=== PATIENT | male | born 1950 | race African-American/Black ===

== ENCOUNTER 2020-11-22 17:14 | Inpatient (IN) | payer MEDICARE, MEDICAID ==
[~2020-11-22] VITALS: Ht 172.7 cm; Wt 79.4 kg
[2020-11-22] MEDS ORDERED: levETIRAcetam 1,000mg/NS100ml 100 ML IVPB ONE (17:30)
--- NOTE | 2020-11-22 17:35 | Emergency Room Report ---
History of Present Illness General Chief Complaint: Seizure Source: Patient Present Illness HPI Disclaimer: Please note that this report is being documented using DRAGON technology. This can lead to erroneous entry secondary to incorrect interpretation by the dictating instrument. HPI: 62-year-old male presents for evaluation of seizure-like activity. According to EMS the patient's roommate witnessed 2 brief episodes of generalized tonic-clonic shaking that resolved spontaneously. Each lasted less than 30 seconds. No head injury was reported. The patient arrives awake and alert and denies having a seizure history. He does not know how he came to the emergency department has retrograde amnesia. Denies any pain or discomfort. Denies headache, visual changes, numbness, tingling, pain in the extremities, chest, shortness of breath, nausea, vomiting. States he does not take any medications for seizures. Does have a history of high blood pressure.. PMH: Hypertension PSH: Nominal surgery unspecified Allergies: Denied Social Hx: Reviewed Allergies: Coded Allergies: No Known Allergies (Unverified , 11/22/20) COVID-19 Screening Contact w/high risk pt: No Experienced COVID-19 symptoms?: No COVID-19 Testing performed PERCUSSION INSTRUMENT REPAIRER: No Nursing Documentation-PMH Hx Seizures: Yes Review of Systems All Other Systems: negative except mentioned in HPI Physical Exam Vital Signs Date Time Temp Pulse Resp B/P (MAP) Pulse Ox O2 Delivery O2 Flow Rate FiO2 11/22/20 16:55 98.2 97 18 138/82 (100) 96 Nasal Cannula 3.0 General: Awake and alert, no acute distress HEENT: NC/AT. EOMI. PERRLA. Visual hayden are full. No nystagmus. Facial expressions are symmetrical. No facial droop. Cardiovascular: RRR. S1 and S2 normal. No murmur appreciated Resp: Normal work of breathing. No cough, wheezing or crackles appreciated Abdomen: Abdomen is soft, nondistended. Nontender Skin: Intact. No abrasions, laceration or rash over the exposed skin MSK: Normal tone and bulk. Moving all extremities. No obvious deformity. There is no drift in the upper or lower extremities bilaterally. Neuro: Awake and alert. Mentating appropriately. Facial expression symmetrical. No dysarthria, no ataxia on [id number] or [id number] testing. Sensation to light touch is intact over the upper and lower extremities. The patient has intact speech with good repetition, comprehension. Fund of knowledge is full. No aphasia, no neglect. NIH: 0 Medical Decision Making Diagnostic Impression: Primary Impression: Abnormal EKG Additional Impressions: Cocaine abuse Observed seizure-like activity ER Course 70-year-old male presents for evaluation after generalized tonic-clonic shaking. Concern for seizure. Unclear whether or not the patient has a seizure history. He is awake and alert and behaving appropriately. Patient found mildly hypoglycemic and given orange juice. His EKG shows precordial Q waves and diffuse inverted T in the anterolateral leads. No obvious ST segment elevation though abnormal EKG. CT head shows chronic changes. No acute bleed or mass identified. Labs are positive for cocaine on tox screen. Initial troponin within normal limits. Will admit for cardiac evaluation given his abnormal EKG and seizure-like activity today. Admitted to panel physician, Dr. Harding. Laboratory Tests Test 11/22/20 17:30 11/22/20 19:00 11/22/20 20:00 White Blood Count 4.8 K/UL (4.8-10.8) Red Blood Count 5.71 M/UL (4.70-6.10) Hemoglobin 15.5 G/DL (14.2-18.0) Hematocrit 49.1 % (42.0-52.0) Mean Corpuscular Volume 86 FL (80-99) Mean Corpuscular Hemoglobin 27.1 PG (27.0-31.0) Mean Corpuscular Hemoglobin Concent 31.5 G/DL (32.0-36.0) L Red Cell Distribution Width 14.6 % (11.6-14.8) Platelet Count 162 K/UL (150-450) Mean Platelet Volume 10.3 FL (6.5-10.1) H Neutrophils (%) (Auto) 62.6 % (45.0-75.0) Lymphocytes (%) (Auto) 21.4 % (20.0-45.0) Monocytes (%) (Auto) 6.2 % (1.0-10.0) Eosinophils (%) (Auto) 8.4 % (0.0-3.0) H Basophils (%) (Auto) 1.3 % (0.0-2.0) Sodium Level 141 MMOL/L (136-145) Potassium Level 4.6 MMOL/L (3.5-5.1) Chloride Level 108 MMOL/L (98-107) H Carbon Dioxide Level 24 MMOL/L (21-32) Anion Gap 9 mmol/L (5-15) Blood Urea Nitrogen 15 mg/dL (7-18) Creatinine 1.0 MG/DL (0.55-1.30) Estimated Glomerular Filtration Rate > 60 mL/min (>60) Glucose Level 86 MG/DL (74-106) Calcium Level 8.8 MG/DL (8.5-10.1) Total Bilirubin 0.3 MG/DL (0.2-1.0) Aspartate Amino Transferase (AST) 20 U/L (15-37) Alanine Aminotransferase (ALT) 26 U/L (12-78) Alkaline Phosphatase 64 U/L (46-116) Total Protein 7.5 G/DL (6.4-8.2) Albumin 3.3 G/DL (3.4-5.0) L Globulin 4.2 g/dL Albumin/Globulin Ratio 0.8 (1.0-2.7) L Salicylates Level 1.0 ug/mL (2.8-20) L Acetaminophen Level < 2 MCG/ML (10-30) L Serum Alcohol < 3 mg/dL Urine Color Pale yellow Urine Appearance Slightly cloudy Urine pH 5 (4.5-8.0) Urine Specific [place] 1.015 (1.005-1.035) Urine Protein 2+ (NEGATIVE) H Urine Glucose (UA) Negative (NEGATIVE) Urine Ketones Negative (NEGATIVE) Urine Blood Negative (NEGATIVE) Urine Nitrite Negative (NEGATIVE) Urine Bilirubin Negative (NEGATIVE) Urine Urobilinogen Normal MG/DL (0.0-1.0) Urine Leukocyte Esterase 1+ (NEGATIVE) H Urine RBC 0 /HPF (0 - 0) Urine WBC 5-10 /HPF (0 - 0) H Urine Squamous Epithelial Cells Moderate /LPF (NONE/OCC) H Urine Amorphous Sediment Moderate /LPF (NONE) H Urine Bacteria Few /HPF (NONE) Urine Opiates Screen Negative (NEGATIVE) Urine Barbiturates Screen Negative (NEGATIVE) Phencyclidine (PCP) Screen Negative (NEGATIVE) Urine Amphetamines Screen Negative (NEGATIVE) Urine Benzodiazepines Screen Negative (NEGATIVE) Urine Cocaine Screen Positive (NEGATIVE) H Urine Marijuana (THC) Screen Negative (NEGATIVE) Troponin I 0.033 ng/mL (0.000-0.056) Pro-B-Type Natriuretic Peptide 825 pg/mL (0-125) H EKG Diagnostic Results Troponin ordered: Yes When was troponin ordered?: Nov 22, 2020 EKG Time: 17:16 Rate: normal Rhythm: NSR Other Impression Sinus rhythm, left axis, normal intervals, T wave inversions and precordial Q waves. No ST segment changes. Rhythm Strip Diag. Results Rhythm Strip Time: 17:16 EP Interpretation: yes Rate: 70s Rhythm: NSR, no PVC's, no ectopy CT/MRI/US Diagnostic Results CT/MRI/US Diagnostic Results : Impression CT Head IMPRESSION: 1. No acute intracranial abnormality. If clinical concern remains, consider MRI for further evaluation. 2. 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 3. Chronic microvascular ischemic and age-related parenchymal changes. Dictated By: Carlos Lam M.D. Electronically Signed By:Carlos Lam M.D. Signed Date/Time11/22/20 1801 CC: Noé Reyes MD Last Vital Signs Date Time Temp Pulse Resp B/P (MAP) Pulse Ox O2 Delivery O2 Flow Rate FiO2 11/22/20 16:55 98.2 97 18 138/82 (100) 96 Nasal Cannula 3.0 Disposition: ADMITTED INPATIENT Condition: Stable Noé Reyes MD Nov 22, 2020 17:35
--- NOTE | 2020-11-22 17:40 | NUR ---
ED Nurse Note:pt arrived via ems alert. attempted to ask pt questions several times. pt kept his eyes closed and would not answer. he would open his eyes and look around and close them again. AMADO at the bedside asking questions and pt answering without difficulty. as soon as AMADO walked away pt continued to not speak. ems stated his roommate thought he was having a seizure and was afraid he would aspirate so he called 911. pt [address] he didn't have a seizure. he stated that he hasn't been taking any seizure meds.
[2020-11-22 17:56] LABS: BASOPHILS % (AUTO) 1.3 % (0.0-2.0); EOSINOPHILS % (AUTO) 8.4 % (0.0-3.0); HEMATOCRIT 49.1 % (42.0-52.0); HEMOGLOBIN 15.5 G/DL (14.2-18.0); LYMPHOCYTES % (AUTO) 21.4 % (20.0-45.0); MEAN CORPUSCULAR VOLUME 86 FL (80-99); MONOCYTES % (AUTO) 6.2 % (1.0-10.0); NEUTROPHILS % (AUTO) 62.6 % (45.0-75.0); PLATELET COUNT 162 K/UL (150-450); RED BLOOD COUNT 5.71 M/UL (4.70-6.10); RED CELL DISTRIBUTION WIDTH 14.6 % (11.6-14.8); WHITE BLOOD COUNT 4.8 K/UL (4.8-10.8)
--- NOTE | 2020-11-22 18:02 | Diagnostic Imaging Report ---
EXAM: CT Head Without Intravenous Contrast CLINICAL HISTORY: SZ TECHNIQUE: Axial computed tomography images of the head/brain without intravenous contrast. CTDI is 13.20 mGy and DLP is 683.60 mGy-cm. One or more of the following dose reduction techniques were used: automated exposure control, adjustment of the mA and/or kV according to patient size, use of iterative reconstruction technique. COMPARISON: No relevant prior studies available. FINDINGS: Brain: Encephalomalacia of the right frontal lobe. Age-related parenchymal volume loss. Periventricular and deep white matter hypodensities. No hemorrhage. Ventricles: Unremarkable. No ventriculomegaly. Bones/joints: Unremarkable. No acute fracture. Soft tissues: Unremarkable. Vasculature: Atherosclerotic vascular disease. Sinuses: Unremarkable as visualized. No acute sinusitis. Mastoid air cells: Unremarkable as visualized. No mastoid effusion. IMPRESSION: 1. No acute intracranial abnormality. If clinical concern remains, consider MRI for further evaluation. 2. 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 3. Chronic microvascular ischemic and age-related parenchymal changes.
[2020-11-22 18:04] LABS: ANION GAP 9 mmol/L (5-15); BLOOD UREA NITROGEN 15 mg/dL (7-18); CALCIUM 8.8 MG/DL (8.5-10.1); CARBON DIOXIDE 24 MMOL/L (21-32); CHLORIDE 108 MMOL/L (98-107); POTASSIUM 4.6 MMOL/L (3.5-5.1); SODIUM 141 MMOL/L (136-145)
--- NOTE | 2020-11-22 18:06 | NUR ---
ED Nurse Note:bg 74, reported to ERMD orders to give some juice to pt. pt took the juice and drank it.
[2020-11-22 18:08] VITALS: BP 119/84
[2020-11-22 18:10] LABS: ALANINE AMINOTRANSFERASE 26 U/L (12-78); ALBUMIN 3.3 G/DL (3.4-5.0); ALBUMIN/GLOBULIN RATIO 0.8 (1.0-2.7); ALKALINE PHOSPHATASE 64 U/L (46-116); ASPARTATE AMINO TRANSFERASE 20 U/L (15-37); BILIRUBIN,TOTAL 0.3 MG/DL (0.2-1.0)
--- NOTE | 2020-11-22 18:47 | NUR ---
ED Nurse Note:pt resting with eyes closed in no noted distress. will continue to monitor. pt continues to not answer this pt's questions
--- NOTE | 2020-11-22 19:05 | NUR ---
ED Nurse Note: Received pt in bed resting with eyes closed, vitals stable.
--- NOTE | 2020-11-22 19:30 | NUR ---
ED Nurse Note: Patient is awake, alert, oriented to person, place, disoriented to time and situation. Vitals stable, no complaints, asymptomatic. Voids and had a BM. Patient is forgetful, states he takes medications at home, does not recall the names. belonging list completed and signed by patient.
[2020-11-22 19:46] LABS: BILIRUBIN, URINE NEGATIVE (NEGATIVE); COLOR,URINE PALE YELLOW; GLUCOSE, URINE (UA) NEGATIVE (NEGATIVE); KETONES,URINE NEGATIVE (NEGATIVE); LEUKOCYTE ESTERASE ,URINE 1+ (NEGATIVE); NITRITE,URINE NEGATIVE (NEGATIVE); PH,URINE 5 (4.5-8.0); PROTEIN,URINE 2+ (NEGATIVE); UROBILINOGEN,URINE NORMAL MG/DL (0.0-1.0)
[2020-11-22 19:48] LABS: APPEARANCE,URINE SLIGHTLY CLOUDY
--- NOTE | 2020-11-22 20:00 | NUR ---
ED Nurse Note: Lab draw completed.well tolerated.
[2020-11-22] MEDS ORDERED: KEPPRA500 M4 ORAL (20:11)
[2020-11-22 20:15] VITALS: BP 123/75
--- NOTE | 2020-11-22 22:10 | NUR ---
NURSE NOTES: Report given by HERMAN Spears. Awaiting for patient's transfer.
--- NOTE | 2020-11-22 22:15 | NUR ---
TRANSFER TO FLOOR: Patient transferred to Tele room 209-2 as ordered,per corinne .Report given to HERMAN Rivera. Belongings given to patient. pt transferred with one staff and nurse, kaila.
--- NOTE | 2020-11-22 22:40 | NUR ---
NURSE NOTES: Received patient from E.R via [facility]. Patient is awake, alert and oriented x 3 in stable condition. Oriented to room and telemetry unit. Belongings list checked and verified. pvc monitor is in place, shows sinus bradycardia with HR of 58. IV site is on right forearm g-22 saline locked that is patent and intact. Safety measures are in place, bed in lowest and locked position, side rails up x 2, call light button and bedside table within reach, instructed to call for any assistance needed. Will call MD for admission orders.
--- NOTE | 2020-11-22 22:50 | NUR ---
NURSE NOTES: Called Dr. Harding and left a message to get admission orders. Awaiting for call back.
--- NOTE | 2020-11-22 23:39 | NUR ---
NURSE NOTES: Patient has a history of seizure, padded side rails and suction was set-up. Will closely monitor for episode of seizure.
[2020-11-23] VITALS: BP 100/73
--- NOTE | 2020-11-23 02:03 | NUR ---
NURSE NOTES: Called Dr. Harding again to get admission orders, awaiting for call back. At this time, patient is asleep, sinus bradycardia on the monitor HR of 58-59, with ST depression.
[2020-11-23] MEDS ORDERED: Morphine Sulfate 2mg/ml Inj(IV/IM USE ONLY) IVP PRN (03:00)
[2020-11-23] MEDS ORDERED: D5 1/2NS 1,000 ML IV SCH (03:00)
[2020-11-23 04:00] VITALS: BP 96/51
--- NOTE | 2020-11-23 07:41 | NUR ---
NURSE HAND-OFF REPORT: Important Events on Shift: Patient has been resting the whole shift with no complaints made. Patient Status: Patient is awake on bed in stable condition, plan of care endorsed Diet: regular diet Pending Orders: troponin @ 1400 and 2200 Pending Results/Labs:am lab result Pending MD notification:none Latest Vital Signs: Temperature 98.6 , Pulse 55 , B/P 96 /51 , Respiratory Rate 18 , O2 SAT 98 , Room Air, O2 Flow Rate 3.0 . Vital Sign Comment: stable EKG Rhythm: SR with 1ST degree AVB Rhythm change?: Shannon DOMINGUEZ Notified?: Shannon -Dr. Hermilo DOMINGUEZ Response: Message left await call Latest Hernandez Fall Score: 35 Fall Risk: Medium Risk Safety Measures: Call light Within Reach, Bed Alarm , Side Rails Side Rails x2, Bed position . Fall Precautions: Patient Fall Education Report given to HERMAN Melo.
--- NOTE | 2020-11-23 07:50 | NUR ---
NURSE NOTES: Received patient report from HERMAN Yun. Patient is AO x4 awake and able to make needs known. Patient shows no signs of distress or pain at the time. Patient is on room air and shows no signs of respiratory distress. IV is intact and running D5 1/2 NS at 60 cc/hr. There are no signs of erythema, infiltration, or bleeding. Bed is in the lowest position, call light is within reach, side rails up x3. Will continue to monitor.
[2020-11-23 08:00] VITALS: BP 83/52
--- NOTE | 2020-11-23 08:28 | NUR ---
NURSE NOTES: Patients current blood pressure is 83/52. I spoke to Dr. Akhtar and he ordered NS 500 bolus and if BP is still below 90 then start Levophed. Will continue to monitor.
[2020-11-23 08:42] LABS: EOSINOPHILS % (AUTO) 9.4 % (0.0-3.0); HEMATOCRIT 47.4 % (42.0-52.0); HEMOGLOBIN 14.5 G/DL (14.2-18.0); MEAN CORPUSCULAR VOLUME 86 FL (80-99); MONOCYTES % (AUTO) 5.8 % (1.0-10.0); NEUTROPHILS % (AUTO) 48.8 % (45.0-75.0); PLATELET COUNT 173 K/UL (150-450); RED BLOOD COUNT 5.54 M/UL (4.70-6.10); RED CELL DISTRIBUTION WIDTH 14.6 % (11.6-14.8); WHITE BLOOD COUNT 5.8 K/UL (4.8-10.8)
--- NOTE | 2020-11-23 08:49 | NUR ---
NURSE NOTES: After 1 500 NS bolus patients BP is 90/ 56. Will continue to monitor.
[2020-11-23 09:08] LABS: ANION GAP 9 mmol/L (5-15); BLOOD UREA NITROGEN 14 mg/dL (7-18); CALCIUM 8.3 MG/DL (8.5-10.1); CARBON DIOXIDE 24 MMOL/L (21-32); CHLORIDE 109 MMOL/L (98-107); CREATININE 0.9 MG/DL (0.55-1.30); SODIUM 142 MMOL/L (136-145)
--- NOTE | 2020-11-23 09:08 | NUR ---
CASE MANAGEMENT:REVIEW 70 YR OLD MALE BIBA FROM HOME CC: SEIZURE WITNESSED BY ROOMMATE SI:SEIZURE. COCAINE ABUSE. ABNORMAL EKG 98.2 97 18 138/82 96% ON 3L/NC TROPONIN (-) BNP+825 URINE(+) COCAINE IS: IV KEPPRA 500CC NS BOLUS CT HEAD : TELEMETRY STATUS DCP:FROM HOME PLAN: NEURO CHECKS Q4HRS SEIZURE PRECAUTIONS
[2020-11-23] MEDS: Heparin 5000 units/ml inj SUBQ SCH ×2 (09:57→17:24)
--- NOTE | 2020-11-23 10:14 | History and Physical Report ---
DATE OF ADMISSION: 11/22/2020 DATE AND TIME SEEN: 11/23/2020 at 9 a.m. CONSULTANTS: 1. Serg Akhtar MD. 2. . CHIEF COMPLAINT: Seizure, elevated troponin, drug abuse. BRIEF HISTORY: This is a 70-year-old transient male, comes to [facility] last night with above-mentioned diagnosis, seizure x2, witnessed about 30 seconds each. The patient is seen in the ER, admitted to tele. Currently, sleeping in bed, refusing to answer questions. REVIEW OF SYSTEMS: Unavailable. PAST MEDICAL HISTORY: Includes hypertension, drug abuse. PAST SURGICAL HISTORY: Unknown. MEDICATIONS: Include heparin, morphine, IV fluid, Lipitor, . ALLERGIES: Denies. SOCIAL HISTORY: Unable to obtain secondary to the patient's condition. OBJECTIVE: GENERAL: Sleeping in bed, not talking much. VITAL SIGNS: Temperature 99, pulse 64, respirations 20, blood pressure 83/52. CARDIOVASCULAR: No murmur. LUNGS: Distant and clear. ABDOMEN: Bowel sounds distant. Nontender and nondistended. EXTREMITIES: No cyanosis, clubbing, or edema. NEUROLOGIC: The patient moves all extremities, slightly weak. LABORATORY AND DIAGNOSTIC DATA: Labs at this time show CBC is normal. BMP, chloride 109, glucose 138, calcium 8.3. BNP is 825. Troponin 0.033. Albumin 3.3. Urine tox positive for cocaine. Urinalysis, 1+ leukocyte esterase. ASSESSMENT: Seizure, UTI, cocaine abuse, hypertension. PLAN: Resume home medications. Detox. Dietary followup. Antibiotics per Infectious Disease. Seizure control and monitor. We will add Dr. Coulter evaluation. CBC and BMP in the morning. ID evaluation. Jhon Harding D.O. DR: DESHAUN JOB#: [id number] CC:
--- NOTE | 2020-11-23 10:37 | Cardiac Electrophysiology PN ---
Subjective Subjective Late Entry Seen in ER and [facility] ER MD on 11/22/20 Dictated # [id number] Objective Last 24 Hour Vital Signs Date Time Temp Pulse Resp B/P (MAP) Pulse Ox O2 Delivery O2 Flow Rate FiO2 11/23/20 08:00 99.3 64 20 83/52 (62) 95 11/23/20 04:00 58 11/23/20 04:00 98.6 55 18 96/51 (66) 98 11/23/20 00:00 97.9 64 22 100/73 (82) 96 11/22/20 23:15 Room Air 11/22/20 23:03 58 11/22/20 20:15 98.3 78 16 123/75 100 Room Air 11/22/20 18:08 62 18 119/84 94 Room Air 11/22/20 17:20 69 20 11/22/20 16:55 98.2 97 18 138/82 (100) 96 Nasal Cannula 3.0 Intake and Output 11/22/20 11/23/20 19:00 07:00 Output Total 200 ml Balance -200 ml Output Urine Total 200 ml # Voids 2 # Bowel Movements 1 Laboratory Tests Test 11/22/20 17:30 11/22/20 19:00 11/22/20 20:00 11/23/20 07:28 White Blood Count 4.8 K/UL (4.8-10.8) 5.8 K/UL (4.8-10.8) Red Blood Count 5.71 M/UL (4.70-6.10) 5.54 M/UL (4.70-6.10) Hemoglobin 15.5 G/DL (14.2-18.0) 14.5 G/DL (14.2-18.0) Hematocrit 49.1 % (42.0-52.0) 47.4 % (42.0-52.0) Mean Corpuscular Volume 86 FL (80-99) 86 FL (80-99) Mean Corpuscular Hemoglobin 27.1 PG (27.0-31.0) 26.2 PG (27.0-31.0) L Mean Corpuscular Hemoglobin Concent 31.5 G/DL (32.0-36.0) L 30.6 G/DL (32.0-36.0) L Red Cell Distribution Width 14.6 % (11.6-14.8) 14.6 % (11.6-14.8) Platelet Count 162 K/UL (150-450) 173 K/UL (150-450) Mean Platelet Volume 10.3 FL (6.5-10.1) H 10.0 FL (6.5-10.1) Neutrophils (%) (Auto) 62.6 % (45.0-75.0) 48.8 % (45.0-75.0) Lymphocytes (%) (Auto) 21.4 % (20.0-45.0) 35.0 % (20.0-45.0) Monocytes (%) (Auto) 6.2 % (1.0-10.0) 5.8 % (1.0-10.0) Eosinophils (%) (Auto) 8.4 % (0.0-3.0) H 9.4 % (0.0-3.0) H Basophils (%) (Auto) 1.3 % (0.0-2.0) 1.0 % (0.0-2.0) Sodium Level 141 MMOL/L (136-145) 142 MMOL/L (136-145) Potassium Level 4.6 MMOL/L (3.5-5.1) 4.0 MMOL/L (3.5-5.1) Chloride Level 108 MMOL/L (98-107) H 109 MMOL/L (98-107) H Carbon Dioxide Level 24 MMOL/L (21-32) 24 MMOL/L (21-32) Anion Gap 9 mmol/L (5-15) 9 mmol/L (5-15) Blood Urea Nitrogen 15 mg/dL (7-18) 14 mg/dL (7-18) Creatinine 1.0 MG/DL (0.55-1.30) 0.9 MG/DL (0.55-1.30) Estimat Glomerular Filtration Rate > 60 mL/min (>60) > 60 mL/min (>60) Glucose Level 86 MG/DL (74-106) 138 MG/DL (74-106) H Calcium Level 8.8 MG/DL (8.5-10.1) 8.3 MG/DL (8.5-10.1) L Total Bilirubin 0.3 MG/DL (0.2-1.0) Aspartate Amino Transf (AST/SGOT) 20 U/L (15-37) Alanine Aminotransferase (ALT/SGPT) 26 U/L (12-78) Alkaline Phosphatase 64 U/L (46-116) Total Protein 7.5 G/DL (6.4-8.2) Albumin 3.3 G/DL (3.4-5.0) L Globulin 4.2 g/dL Albumin/Globulin Ratio 0.8 (1.0-2.7) L Salicylates Level 1.0 ug/mL (2.8-20) L Acetaminophen Level < 2 MCG/ML (10-30) L Serum Alcohol < 3 mg/dL Urine Color Pale yellow Urine Appearance Slightly cloudy Urine pH 5 (4.5-8.0) Urine Specific [place] 1.015 (1.005-1.035) Urine Protein 2+ (NEGATIVE) H Urine Glucose (UA) Negative (NEGATIVE) Urine Ketones Negative (NEGATIVE) Urine Blood Negative (NEGATIVE) Urine Nitrite Negative (NEGATIVE) Urine Bilirubin Negative (NEGATIVE) Urine Urobilinogen Normal MG/DL (0.0-1.0) Urine Leukocyte Esterase 1+ (NEGATIVE) H Urine RBC 0 /HPF (0 - 0) Urine WBC 5-10 /HPF (0 - 0) H Urine Squamous Epithelial Cells Moderate /LPF (NONE/OCC) H Urine Amorphous Sediment Moderate /LPF (NONE) H Urine Bacteria Few /HPF (NONE) Urine Opiates Screen Negative (NEGATIVE) Urine Barbiturates Screen Negative (NEGATIVE) Phencyclidine (PCP) Screen Negative (NEGATIVE) Urine Amphetamines Screen Negative (NEGATIVE) Urine Benzodiazepines Screen Negative (NEGATIVE) Urine Cocaine Screen Positive (NEGATIVE) H Urine Marijuana (THC) Screen Negative (NEGATIVE) Troponin I 0.033 ng/mL (0.000-0.056) 0.024 ng/mL (0.000-0.056) Pro-B-Type Natriuretic Peptide 825 pg/mL (0-125) H Serg Akhtar MD Nov 23, 2020 10:37
--- NOTE | 2020-11-23 11:29 | Consultation ---
DATE OF CONSULTATION: 11/22/2020 CARDIOLOGY CONSULTATION CONSULTING PHYSICIAN: Serg Akhtar MD. REFERRING PHYSICIAN: Jhon Harding DO. REASON FOR CONSULTATION: Severely abnormal electrocardiogram with evidence of prior myocardial infarction. HISTORY OF PRESENT ILLNESS: The patient is a 70-year-old gentleman with history of seizures, was brought to the emergency room for evaluation of seizure-like activity. Per paramedics, the patient's roommate witnessed two episodes of generalized tonic-clonic shaking that resolved spontaneously, this lasted about 30 seconds. The patient did not have any head injury. When the patient was arrived in the ER, he denied any seizure history and was awake. He denied any chest pain or shortness of breath. The patient's EKG, however, was very abnormal, suggestive of anterolateral myocardial infarction with T-wave inversion in lead I and aVL as well as V1 through V5 and QS pattern in lead I and aVL. The patient has history of hypertension. Cardiology consultation was obtained for further evaluation. REVIEW OF SYSTEMS: Negative other than what is mentioned in the history of present illness. PAST MEDICAL HISTORY: As mentioned above. FAMILY HISTORY: Noncontributory. SOCIAL HISTORY: He has history of cocaine abuse. PHYSICAL EXAMINATION: VITAL SIGNS: Blood pressure of 138/82, pulse is 97, respirations 18, and he is afebrile. HEAD AND NECK: Showed no JVD. LUNGS: Clear. CARDIOVASCULAR: Shows regular S1 and S2 with no gallop. ABDOMEN: Soft. EXTREMITIES: No pitting edema. LABORATORY DATA: Labs show sodium 141, potassium 4.6, BUN of 15, creatinine of 1, glucose of 86. First troponin is negative. BNP is 825. White count is 4.8, hemoglobin 15.5, hematocrit of 49, and platelet count 162. ASSESSMENT AND PLAN: 1. Severely abnormal electrocardiogram shows old myocardial infarction and ongoing anterolateral ischemia in this patient with history of urine toxicology is positive for cocaine. We will completely rule out LA protocol. Repeat the EKG and echocardiogram. I would avoid beta-vanessa, admitted and put him on aspirin and Lipitor and further information is available. 2. Status post report of seizure-like activity. Further evaluation per Neurology. 3. Cocaine abuse. Thank you very much for allowing me to participate in the care of this patient. Please do not hesitate to contact me for any questions regarding my evaluation. The case was discussed with the emergency room physician as well. Serg Akhtar M.D. DR: MARILYN JOB#: [id number] CC:
--- NOTE | 2020-11-23 11:32 | Cardiac Electrophysiology PN ---
Assessment/Plan Assessment/Plan 1. Hypotension better after 500 cc NS. Change iv fluid to NS 80 cc/hr. TTE pending 2. OLD inferior wall [place] and lateral ischemia on ECG. Denies rior [place] or [place]. WIll repeat ECG and get ECho Keep off beta vanessa for Cocaine use. On Aspirin and Lipitor 3. Cocaine user 4. Seizures Subjective Subjective No CP or SOB. BP was 78/50 that improved to 83/52. I Ordred 500cc NS and BP better now. No CP or SOB. Objective Last 24 Hour Vital Signs Date Time Temp Pulse Resp B/P (MAP) Pulse Ox O2 Delivery O2 Flow Rate FiO2 11/23/20 08:00 68 11/23/20 08:00 99.3 64 20 83/52 (62) 95 11/23/20 04:00 58 11/23/20 04:00 98.6 55 18 96/51 (66) 98 11/23/20 00:00 97.9 64 22 100/73 (82) 96 11/22/20 23:15 Room Air 11/22/20 23:03 58 11/22/20 20:15 98.3 78 16 123/75 100 Room Air 11/22/20 18:08 62 18 119/84 94 Room Air 11/22/20 17:20 69 20 11/22/20 16:55 98.2 97 18 138/82 (100) 96 Nasal Cannula 3.0 Intake and Output 11/22/20 11/23/20 19:00 07:00 Output Total 200 ml Balance -200 ml Output Urine Total 200 ml # Voids 2 # Bowel Movements 1 Laboratory Tests Test 11/22/20 17:30 11/22/20 19:00 11/22/20 20:00 11/23/20 07:28 White Blood Count 4.8 K/UL (4.8-10.8) 5.8 K/UL (4.8-10.8) Red Blood Count 5.71 M/UL (4.70-6.10) 5.54 M/UL (4.70-6.10) Hemoglobin 15.5 G/DL (14.2-18.0) 14.5 G/DL (14.2-18.0) Hematocrit 49.1 % (42.0-52.0) 47.4 % (42.0-52.0) Mean Corpuscular Volume 86 FL (80-99) 86 FL (80-99) Mean Corpuscular Hemoglobin 27.1 PG (27.0-31.0) 26.2 PG (27.0-31.0) L Mean Corpuscular Hemoglobin Concent 31.5 G/DL (32.0-36.0) L 30.6 G/DL (32.0-36.0) L Red Cell Distribution Width 14.6 % (11.6-14.8) 14.6 % (11.6-14.8) Platelet Count 162 K/UL (150-450) 173 K/UL (150-450) Mean Platelet Volume 10.3 FL (6.5-10.1) H 10.0 FL (6.5-10.1) Neutrophils (%) (Auto) 62.6 % (45.0-75.0) 48.8 % (45.0-75.0) Lymphocytes (%) (Auto) 21.4 % (20.0-45.0) 35.0 % (20.0-45.0) Monocytes (%) (Auto) 6.2 % (1.0-10.0) 5.8 % (1.0-10.0) Eosinophils (%) (Auto) 8.4 % (0.0-3.0) H 9.4 % (0.0-3.0) H Basophils (%) (Auto) 1.3 % (0.0-2.0) 1.0 % (0.0-2.0) Sodium Level 141 MMOL/L (136-145) 142 MMOL/L (136-145) Potassium Level 4.6 MMOL/L (3.5-5.1) 4.0 MMOL/L (3.5-5.1) Chloride Level 108 MMOL/L (98-107) H 109 MMOL/L (98-107) H Carbon Dioxide Level 24 MMOL/L (21-32) 24 MMOL/L (21-32) Anion Gap 9 mmol/L (5-15) 9 mmol/L (5-15) Blood Urea Nitrogen 15 mg/dL (7-18) 14 mg/dL (7-18) Creatinine 1.0 MG/DL (0.55-1.30) 0.9 MG/DL (0.55-1.30) Estimat Glomerular Filtration Rate > 60 mL/min (>60) > 60 mL/min (>60) Glucose Level 86 MG/DL (74-106) 138 MG/DL (74-106) H Calcium Level 8.8 MG/DL (8.5-10.1) 8.3 MG/DL (8.5-10.1) L Total Bilirubin 0.3 MG/DL (0.2-1.0) Aspartate Amino Transf (AST/SGOT) 20 U/L (15-37) Alanine Aminotransferase (ALT/SGPT) 26 U/L (12-78) Alkaline Phosphatase 64 U/L (46-116) Total Protein 7.5 G/DL (6.4-8.2) Albumin 3.3 G/DL (3.4-5.0) L Globulin 4.2 g/dL Albumin/Globulin Ratio 0.8 (1.0-2.7) L Salicylates Level 1.0 ug/mL (2.8-20) L Acetaminophen Level < 2 MCG/ML (10-30) L Serum Alcohol < 3 mg/dL Urine Color Pale yellow Urine Appearance Slightly cloudy Urine pH 5 (4.5-8.0) Urine Specific [place] 1.015 (1.005-1.035) Urine Protein 2+ (NEGATIVE) H Urine Glucose (UA) Negative (NEGATIVE) Urine Ketones Negative (NEGATIVE) Urine Blood Negative (NEGATIVE) Urine Nitrite Negative (NEGATIVE) Urine Bilirubin Negative (NEGATIVE) Urine Urobilinogen Normal MG/DL (0.0-1.0) Urine Leukocyte Esterase 1+ (NEGATIVE) H Urine RBC 0 /HPF (0 - 0) Urine WBC 5-10 /HPF (0 - 0) H Urine Squamous Epithelial Cells Moderate /LPF (NONE/OCC) H Urine Amorphous Sediment Moderate /LPF (NONE) H Urine Bacteria Few /HPF (NONE) Urine Opiates Screen Negative (NEGATIVE) Urine Barbiturates Screen Negative (NEGATIVE) Phencyclidine (PCP) Screen Negative (NEGATIVE) Urine Amphetamines Screen Negative (NEGATIVE) Urine Benzodiazepines Screen Negative (NEGATIVE) Urine Cocaine Screen Positive (NEGATIVE) H Urine Marijuana (THC) Screen Negative (NEGATIVE) Troponin I 0.033 ng/mL (0.000-0.056) 0.024 ng/mL (0.000-0.056) Pro-B-Type Natriuretic Peptide 825 pg/mL (0-125) H Objective CARDIOVASCULAR: RRR, No murmur. LUNGS: Distant and clear. ABDOMEN: Bowel sounds distant. Nontender and nondistended. EXTREMITIES: No cyanosis, clubbing, or edema. NEUROLOGIC: The patient moves all extremities, slightly weak. Serg Akhtar MD Nov 23, 2020 11:32
--- NOTE | 2020-11-23 11:35 | Consultation ---
History of Present Illness General Date patient seen: Nov 23, 2020 Time patient seen: 11:32 Chief Complaint: Seizure Referring physician: Dr. Harding Reason for Consultation: R/o infection Present Illness HPI 70yo M who p/w seizure at home. ID c/s to eval for infection. Pt has been AF, HDS in house on RA. WBC wnl. CTH neg for acute process. Pt says he is feeling ok. Denies any fevers/chills, NVD, abd pain, dysuria, rashes or other issues. Says he has been around people coughing, doesn't know if they have COVID or not, but he doesn't have any cough or resp issues. Lives in duplex No allergies to abx Allergies: Coded Allergies: No Known Allergies (Unverified , 11/22/20) Medication History Scheduled Levetiracetam (Keppra), 500 MG ORAL EVERY 12 HOURS, (Reported) Patient History Healthcare decision maker Resuscitation status Advanced Directive on File Review of Systems ROS Narrative 10-point ROS neg except as noted in HPI Physical Exam Physical Exam Narrative Gen: NAD HEENT: NCAT Pulm: BL chest rise on RA Abd: Soft, NTND Ext: No c/c/e Neuro: Awake, alert, interactive Last 24 Hour Vital Signs Date Time Temp Pulse Resp B/P (MAP) Pulse Ox O2 Delivery O2 Flow Rate FiO2 11/23/20 08:00 68 11/23/20 08:00 99.3 64 20 83/52 (62) 95 11/23/20 04:00 58 11/23/20 04:00 98.6 55 18 96/51 (66) 98 11/23/20 00:00 97.9 64 22 100/73 (82) 96 11/22/20 23:15 Room Air 11/22/20 23:03 58 11/22/20 20:15 98.3 78 16 123/75 100 Room Air 11/22/20 18:08 62 18 119/84 94 Room Air 11/22/20 17:20 69 20 11/22/20 16:55 98.2 97 18 138/82 (100) 96 Nasal Cannula 3.0 Intake and Output 11/22/20 11/23/20 19:00 07:00 Output Total 200 ml Balance -200 ml Output Urine Total 200 ml # Voids 2 # Bowel Movements 1 Laboratory Tests Test 11/22/20 17:30 11/22/20 19:00 11/22/20 20:00 11/23/20 07:28 White Blood Count 4.8 K/UL (4.8-10.8) 5.8 K/UL (4.8-10.8) Red Blood Count 5.71 M/UL (4.70-6.10) 5.54 M/UL (4.70-6.10) Hemoglobin 15.5 G/DL (14.2-18.0) 14.5 G/DL (14.2-18.0) Hematocrit 49.1 % (42.0-52.0) 47.4 % (42.0-52.0) Mean Corpuscular Volume 86 FL (80-99) 86 FL (80-99) Mean Corpuscular Hemoglobin 27.1 PG (27.0-31.0) 26.2 PG (27.0-31.0) L Mean Corpuscular Hemoglobin Concent 31.5 G/DL (32.0-36.0) L 30.6 G/DL (32.0-36.0) L Red Cell Distribution Width 14.6 % (11.6-14.8) 14.6 % (11.6-14.8) Platelet Count 162 K/UL (150-450) 173 K/UL (150-450) Mean Platelet Volume 10.3 FL (6.5-10.1) H 10.0 FL (6.5-10.1) Neutrophils (%) (Auto) 62.6 % (45.0-75.0) 48.8 % (45.0-75.0) Lymphocytes (%) (Auto) 21.4 % (20.0-45.0) 35.0 % (20.0-45.0) Monocytes (%) (Auto) 6.2 % (1.0-10.0) 5.8 % (1.0-10.0) Eosinophils (%) (Auto) 8.4 % (0.0-3.0) H 9.4 % (0.0-3.0) H Basophils (%) (Auto) 1.3 % (0.0-2.0) 1.0 % (0.0-2.0) Sodium Level 141 MMOL/L (136-145) 142 MMOL/L (136-145) Potassium Level 4.6 MMOL/L (3.5-5.1) 4.0 MMOL/L (3.5-5.1) Chloride Level 108 MMOL/L (98-107) H 109 MMOL/L (98-107) H Carbon Dioxide Level 24 MMOL/L (21-32) 24 MMOL/L (21-32) Anion Gap 9 mmol/L (5-15) 9 mmol/L (5-15) Blood Urea Nitrogen 15 mg/dL (7-18) 14 mg/dL (7-18) Creatinine 1.0 MG/DL (0.55-1.30) 0.9 MG/DL (0.55-1.30) Estimat Glomerular Filtration Rate > 60 mL/min (>60) > 60 mL/min (>60) Glucose Level 86 MG/DL (74-106) 138 MG/DL (74-106) H Calcium Level 8.8 MG/DL (8.5-10.1) 8.3 MG/DL (8.5-10.1) L Total Bilirubin 0.3 MG/DL (0.2-1.0) Aspartate Amino Transf (AST/SGOT) 20 U/L (15-37) Alanine Aminotransferase (ALT/SGPT) 26 U/L (12-78) Alkaline Phosphatase 64 U/L (46-116) Total Protein 7.5 G/DL (6.4-8.2) Albumin 3.3 G/DL (3.4-5.0) L Globulin 4.2 g/dL Albumin/Globulin Ratio 0.8 (1.0-2.7) L Salicylates Level 1.0 ug/mL (2.8-20) L Acetaminophen Level < 2 MCG/ML (10-30) L Serum Alcohol < 3 mg/dL Urine Color Pale yellow Urine Appearance Slightly cloudy Urine pH 5 (4.5-8.0) Urine Specific [place] 1.015 (1.005-1.035) Urine Protein 2+ (NEGATIVE) H Urine Glucose (UA) Negative (NEGATIVE) Urine Ketones Negative (NEGATIVE) Urine Blood Negative (NEGATIVE) Urine Nitrite Negative (NEGATIVE) Urine Bilirubin Negative (NEGATIVE) Urine Urobilinogen Normal MG/DL (0.0-1.0) Urine Leukocyte Esterase 1+ (NEGATIVE) H Urine RBC 0 /HPF (0 - 0) Urine WBC 5-10 /HPF (0 - 0) H Urine Squamous Epithelial Cells Moderate /LPF (NONE/OCC) H Urine Amorphous Sediment Moderate /LPF (NONE) H Urine Bacteria Few /HPF (NONE) Urine Opiates Screen Negative (NEGATIVE) Urine Barbiturates Screen Negative (NEGATIVE) Phencyclidine (PCP) Screen Negative (NEGATIVE) Urine Amphetamines Screen Negative (NEGATIVE) Urine Benzodiazepines Screen Negative (NEGATIVE) Urine Cocaine Screen Positive (NEGATIVE) H Urine Marijuana (THC) Screen Negative (NEGATIVE) Troponin I 0.033 ng/mL (0.000-0.056) 0.024 ng/mL (0.000-0.056) Pro-B-Type Natriuretic Peptide 825 pg/mL (0-125) H Height (Feet): 5 Height (Inches): 8.00 Weight (Pounds): 175 Medications Current Medications Medications (Trade) Dose Ordered Sig/Pooja Route PRN Reason Start Time Stop Time Status Last Admin Dose Admin Aspirin (ASA) 81 mg DAILY ORAL 11/24/20 09:00 01/08/21 08:59 Atorvastatin Calcium (Lipitor) 10 mg BEDTIME ORAL 11/23/20 21:00 02/21/21 20:59 Heparin Sodium (Porcine) (Heparin 5000 units/ml) 5,000 units BID SUBQ 11/23/20 09:00 01/07/21 08:59 11/23/20 09:57 Morphine Sulfate (Morphine Sulfate) 2 mg Q4H PRN IVP Severe Pain (Pain Scale 7-10) 11/23/20 03:00 11/30/20 02:59 Sodium Chloride 1,000 ml @ 80 mls/hr [id number] IV 11/23/20 11:15 12/23/20 11:14 Assessment/Plan Assessment/Plan: 70yo M with: Afebrile Seizure at home Normal WBC Satting well on RA Utox +Cocaine 11/23 UA 5-10 WBC CTH: No acute process CXR: Ordered HIV screen ordered Plan: Cont to monitor off abx, no current s/sx of infection CXR screen to r/o pna, if positive will send COVID PCR HIV screen Monitor CBC/CMP Monitor resp status Monitor temp curve, hemodynamics D/w RN Thank you for this consult. [facility] will continue to follow. Tanisha Acosta M.D. Nov 23, 2020 11:35
[2020-11-23 12:00] VITALS: BP 106/69
--- NOTE | 2020-11-23 14:12 | Diagnostic Imaging Report ---
Indication: Cough Technique: One view of the chest Comparison: none Findings: Lungs and pleural spaces are clear. Heart size is normal. Aorta is tortuous Impression: No acute process
[2020-11-23 16:00] VITALS: BP 115/72
--- NOTE | 2020-11-23 18:35 | NUR ---
NURSE NOTES: Patient denies feeling any chest pain. BP has been above 100 the rest of the day. Patient shows no signs of distress or pain at the time.
--- NOTE | 2020-11-23 19:06 | NUR ---
NURSE HAND-OFF REPORT: Important Events on Shift:[BP went down to 83/52 patient now on NS at 80 cc/hr] Patient Status: [full code] Diet: [regular] Pending Orders: [] Pending Results/Labs:[] Pending MD notification:[] Latest Vital Signs: Temperature 97.9 , Pulse 56 , B/P 115 /72 , Respiratory Rate 20 , O2 SAT 97 , Room Air, O2 Flow Rate 3.0 . Vital Sign Comment: [] EKG Rhythm: SB/ w ST depression Rhythm change?: N MD Notified?: Y -Dr. Hermilo DOMINGUEZ Response: Message left await call Latest Hernandez Fall Score: 35 Fall Risk: Medium Risk Safety Measures: Call light Within Reach, Bed Alarm Zone 2, Side Rails Side Rails x2, Bed position Low and Locked. Fall Precautions: Patient Fall Education Report given to [HERMAN Yun].
--- NOTE | 2020-11-23 19:10 | NUR ---
NURSE NOTES: Report received from HERMAN Melo. Patient is awake on bed, alert and oriented x 3. monitor worker is in place shows sinus bradycardia with no chest pain reported. On room air, saturating 98-99% at this time. On regular diet. Patient is ambulatory with steady gait. IV site is on right forearm g-22 running NS @ 80 cc/hour that is patent and intact. Safety measures are in place, bed in lowest and locked position, side rails up x 2, call light button and bedside table within reach instructed to call for any assistance needed. Will continue plan of care.
[2020-11-23 20:00] VITALS: BP 114/70
--- NOTE | 2020-11-23 21:00 | NUR ---
NURSE NOTES: Patient is resting comfortably at this time, denies chest pain, shortness of breath or any discomfort, satting 9 Addendum: 11/23/20 at 2308 by Eve Bradshaw RN 95% on room air, appetite has been excellent and states that he's having a regular bowel movement. Will continue to monitor.
[2020-11-24] VITALS: BP 101/68
[2020-11-24 04:00] VITALS: BP 107/61
--- NOTE | 2020-11-24 07:41 | NUR ---
NURSE NOTES: Received report from Eve/RN, Observed patient asleep, lying semi-monroe's, resting comfortably. on room air, no acute distress/SOB noted. Able to make needs known, Denies pain at this time. IV on right FA patent and intact, NS running at 80cc/hr. Bed in low position and locked, Call light within reach. Encouraged to use call light when needed. Will continue plan of care.
--- NOTE | 2020-11-24 07:42 | NUR ---
NURSE HAND-OFF REPORT: Important Events on Shift:Patient has been resting well the whole shift with no episode of desaturation nor hypotension. Patient Status: Patient is asleep on bed in stable condition, plan of care endorsed. Diet: Regular diet Pending Orders: none Pending Results/Labs:AM lab result Pending MD notification:none Latest Vital Signs: Temperature 98.4 , Pulse 55 , B/P 107 /61 , Respiratory Rate 19 , O2 SAT 97 , Room Air, O2 Flow Rate 3.0 . Vital Sign Comment: stable EKG Rhythm: SB with 1ST DEGREE AVB, ST DEPRESSION Rhythm change?: N MD Notified?: Shannon Akhtar MD Response: Message left await call Latest Hernandez Fall Score: 35 Fall Risk: Medium Risk Safety Measures: Call light Within Reach, Bed Alarm Zone 2, Side Rails Side Rails x2, Bed position Low and Locked. Fall Precautions: Patient Fall Education Report given to HERMAN Mejia.
[2020-11-24 08:00] VITALS: BP 121/67
[2020-11-24 08:08] LABS: BASOPHILS % (AUTO) 1.1 % (0.0-2.0); EOSINOPHILS % (AUTO) 9.1 % (0.0-3.0); HEMATOCRIT 43.2 % (42.0-52.0); HEMOGLOBIN 13.9 G/DL (14.2-18.0); LYMPHOCYTES % (AUTO) 44.8 % (20.0-45.0); MEAN CORPUSCULAR VOLUME 84 FL (80-99); MONOCYTES % (AUTO) 6.6 % (1.0-10.0); NEUTROPHILS % (AUTO) 38.4 % (45.0-75.0); PLATELET COUNT 160 K/UL (150-450); RED BLOOD COUNT 5.15 M/UL (4.70-6.10); RED CELL DISTRIBUTION WIDTH 15.8 % (11.6-14.8)
--- NOTE | 2020-11-24 08:28 | Infectious Diseases Prog Note ---
Assessment/Plan 70yo M with: Afebrile Seizure at home Normal WBC Satting well on RA Utox +Cocaine 11/23 UA 5-10 WBC CTH: No acute process CXR: No acute process HIV screen p Plan: Cont to monitor off abx, no current s/sx of infection F/u HIV screen Monitor CBC/CMP Monitor resp status Monitor temp curve, hemodynamics D/w RN Thank you for this consult. [facility] will continue to follow. Subjective Allergies: Coded Allergies: No Known Allergies (Unverified , 11/22/20) AF NAD on RA WBC 5.0 Denies any fevers/chills, doing well, no complaints, feels well Objective Last 24 Hour Vital Signs Date Time Temp Pulse Resp B/P (MAP) Pulse Ox O2 Delivery O2 Flow Rate FiO2 11/24/20 04:00 98.4 55 19 107/61 (76) 97 11/24/20 03:55 45 11/24/20 00:00 98.1 61 20 101/68 (79) 95 11/24/20 00:00 64 11/23/20 21:00 Room Air 11/23/20 20:00 56 11/23/20 20:00 98.5 58 18 114/70 (85) 95 11/23/20 16:00 97.9 55 20 115/72 (86) 97 11/23/20 16:00 56 11/23/20 12:00 53 11/23/20 12:00 97.9 55 20 106/69 (81) 96 11/23/20 09:00 Room Air Height (Feet): 5 Height (Inches): 8.00 Weight (Pounds): 175 Gen: NAD in bed HEENT: NCAT, EOMI, PERRL CV: RRR Pulm: CTAB Abd: Soft, NTND Ext: No c/c/e Neuro: Awake Laboratory Tests Test 11/23/20 15:40 11/23/20 23:35 11/24/20 07:10 Troponin I 0.022 ng/mL (0.000-0.056) 0.033 ng/mL (0.000-0.056) HIV (1&2) Antibody Rapid Pending White Blood Count 5.0 K/UL (4.8-10.8) Red Blood Count 5.15 M/UL (4.70-6.10) Hemoglobin 13.9 G/DL (14.2-18.0) L Hematocrit 43.2 % (42.0-52.0) Mean Corpuscular Volume 84 FL (80-99) Mean Corpuscular Hemoglobin 27.0 PG (27.0-31.0) Mean Corpuscular Hemoglobin Concent 32.2 G/DL (32.0-36.0) Red Cell Distribution Width 15.8 % (11.6-14.8) H Platelet Count 160 K/UL (150-450) Mean Platelet Volume 9.1 FL (6.5-10.1) Neutrophils (%) (Auto) 38.4 % (45.0-75.0) L Lymphocytes (%) (Auto) 44.8 % (20.0-45.0) Monocytes (%) (Auto) 6.6 % (1.0-10.0) Eosinophils (%) (Auto) 9.1 % (0.0-3.0) H Basophils (%) (Auto) 1.1 % (0.0-2.0) Sodium Level Pending Potassium Level Pending Chloride Level Pending Carbon Dioxide Level Pending Blood Urea Nitrogen Pending Creatinine Pending Estimat Glomerular Filtration Rate Pending Glucose Level Pending Calcium Level Pending Pro-B-Type Natriuretic Peptide Pending Triglycerides Level Pending Cholesterol Level Pending LDL Cholesterol Pending HDL Cholesterol Pending Cholesterol/HDL Ratio Pending Thyroid Stimulating Hormone (TSH) Pending Current Medications Medications (Trade) Dose Ordered Sig/Pooja Route PRN Reason Start Time Stop Time Status Last Admin Dose Admin Aspirin (ASA) 81 mg DAILY ORAL 11/24/20 09:00 01/08/21 08:59 Atorvastatin Calcium (Lipitor) 10 mg BEDTIME ORAL 11/23/20 21:00 02/21/21 20:59 11/23/20 20:46 Heparin Sodium (Porcine) (Heparin 5000 units/ml) 5,000 units BID SUBQ 11/23/20 09:00 01/07/21 08:59 11/23/20 17:24 Levetiracetam (Keppra) 500 mg Q12HR ORAL 11/24/20 09:00 01/07/21 20:59 Morphine Sulfate (Morphine Sulfate) 2 mg Q4H PRN IVP Severe Pain (Pain Scale 7-10) 11/23/20 03:00 11/30/20 02:59 Sodium Chloride 1,000 ml @ 80 mls/hr [id number] IV 11/23/20 11:15 12/23/20 11:14 11/24/20 00:03 Tanisha Acosta M.D. Nov 24, 2020 08:28
[2020-11-24] MEDS: Aspirin Baby 81mg ORAL SCH (08:29)
[2020-11-24] MEDS: Heparin 5000 units/ml inj SUBQ SCH ×2 (08:30→17:28)
[2020-11-24 08:49] LABS: ANION GAP 6 mmol/L (5-15); BLOOD UREA NITROGEN 13 mg/dL (7-18); CALCIUM 8.1 MG/DL (8.5-10.1); CARBON DIOXIDE 27 MMOL/L (21-32); CHLORIDE 111 MMOL/L (98-107); CHOLESTEROL 92 MG/DL (< 200); CREATININE 0.8 MG/DL (0.55-1.30); HDL CHOLESTEROL 45 MG/DL (40-60); POTASSIUM 3.9 MMOL/L (3.5-5.1); SODIUM 144 MMOL/L (136-145); TRIGLYCERIDES 29 MG/DL (30-150)
--- NOTE | 2020-11-24 09:23 | General Progress Note ---
Subjective Constitutional: Reports: weakness Allergies: Coded Allergies: No Known Allergies (Unverified , 11/22/20) All Systems: reviewed and negative except above Subjective sleepy calm Objective Last 24 Hour Vital Signs Date Time Temp Pulse Resp B/P (MAP) Pulse Ox O2 Delivery O2 Flow Rate FiO2 11/24/20 08:00 97.8 59 20 121/67 (85) 98 11/24/20 04:00 98.4 55 19 107/61 (76) 97 11/24/20 03:55 45 11/24/20 00:00 98.1 61 20 101/68 (79) 95 11/24/20 00:00 64 11/23/20 21:00 Room Air 11/23/20 20:00 56 11/23/20 20:00 98.5 58 18 114/70 (85) 95 11/23/20 16:00 97.9 55 20 115/72 (86) 97 11/23/20 16:00 56 11/23/20 12:00 53 11/23/20 12:00 97.9 55 20 106/69 (81) 96 Intake and Output 11/23/20 11/24/20 19:00 07:00 Intake Total 1400.6 ml 320 ml Output Total 600 ml Balance 800.6 ml 320 ml Intake Oral 810 ml IV Total 590.6 ml 320 ml Output Urine Total 600 ml Laboratory Tests 11/23/20 15:40: Troponin I 0.022, HIV (1&2) Antibody Rapid [Pending] 11/23/20 23:35: Troponin I 0.033 11/24/20 07:10: White Blood Count 5.0, Red Blood Count 5.15, Hemoglobin 13.9L, Hematocrit 43.2, Mean Corpuscular Volume 84, Mean Corpuscular Hemoglobin 27.0, Mean Corpuscular Hemoglobin Concent 32.2, Red Cell Distribution Width 15.8H, Platelet Count 160, Mean Platelet Volume 9.1, Neutrophils (%) (Auto) 38.4L, Lymphocytes (%) (Auto) 44.8, Monocytes (%) (Auto) 6.6, Eosinophils (%) (Auto) 9.1H, Basophils (%) (Auto) 1.1, Sodium Level 144, Potassium Level 3.9, Chloride Level 111H, Carbon Dioxide Level 27, Anion Gap 6, Blood Urea Nitrogen 13, Creatinine 0.8, Estimat Glomerular Filtration Rate > 60, Glucose Level 92, Calcium Level 8.1L, Pro-B-Type Natriuretic Peptide 412H, Triglycerides Level 29L, Cholesterol Level 92, LDL Cholesterol 42, HDL Cholesterol 45, Cholesterol/HDL Ratio 2.0L, Thyroid Stimulating Hormone (TSH) 1.571 Height (Feet): 5 Height (Inches): 8.00 Weight (Pounds): 175 General Appearance: lethargic EENT: normal ENT inspection Neck: normal alignment Cardiovascular: normal peripheral pulses, normal rate, regular rhythm Respiratory/Chest: chest wall non-tender, lungs clear, normal breath sounds Abdomen: normal bowel sounds, non tender, soft Extremities: normal inspection Edema: no edema noted Arm (L), no edema noted Arm (R), no edema noted Leg (L), no edema noted Leg (R), no edema noted Pedal (L), no edema noted Pedal (R), no edema noted Generalized Neurologic: motor weakness Skin: normal pigmentation, warm/dry Assessment/Plan Problem List: (1) HTN (hypertension) ICD Codes: I10 - Essential (primary) hypertension SNOMED: 13378507 (2) Weakness ICD Codes: R53.1 - Weakness SNOMED: 02006144 (3) Cocaine abuse ICD Codes: F14.10 - Cocaine abuse, uncomplicated SNOMED: 32080898 (4) Abnormal EKG ICD Codes: R94.31 - Abnormal electrocardiogram [ECG] [EKG] SNOMED: 817867072 (5) Observed seizure-like activity ICD Codes: R56.9 - Unspecified convulsions SNOMED: 514216440 Status: unchanged Assessment/Plan: pt diet detox seizure control cbc bmp am aru Jhon Kennedy DO Nov 24, 2020 09:23
--- NOTE | 2020-11-24 09:48 | Cardiac Electrophysiology PN ---
Assessment/Plan Assessment/Plan 1. Hypotension better after 500 cc NS. On NS 80 cc/hr. TTE pending 2. OLD inferior wall MA and lateral ischemia on ECG. Denies prior MA or Stent. Will repeat ECG and get Echo Keep off beta vanessa for Cocaine use. On Aspirin and Lipitor 3. Cocaine user 4. Seizures Subjective Subjective No CP or SOB. BP was 78/50 that improved with iv fluids. Seizure precaution in place Objective Last 24 Hour Vital Signs Date Time Temp Pulse Resp B/P (MAP) Pulse Ox O2 Delivery O2 Flow Rate FiO2 11/24/20 08:00 97.8 59 20 121/67 (85) 98 11/24/20 04:00 98.4 55 19 107/61 (76) 97 11/24/20 03:55 45 11/24/20 00:00 98.1 61 20 101/68 (79) 95 11/24/20 00:00 64 11/23/20 21:00 Room Air 11/23/20 20:00 56 11/23/20 20:00 98.5 58 18 114/70 (85) 95 11/23/20 16:00 97.9 55 20 115/72 (86) 97 11/23/20 16:00 56 11/23/20 12:00 53 11/23/20 12:00 97.9 55 20 106/69 (81) 96 Intake and Output 11/23/20 11/24/20 19:00 07:00 Intake Total 1400.6 ml 320 ml Output Total 600 ml Balance 800.6 ml 320 ml Intake Oral 810 ml IV Total 590.6 ml 320 ml Output Urine Total 600 ml Laboratory Tests Test 11/23/20 15:40 11/23/20 23:35 11/24/20 07:10 Troponin I 0.022 ng/mL (0.000-0.056) 0.033 ng/mL (0.000-0.056) HIV (1&2) Antibody Rapid Pending White Blood Count 5.0 K/UL (4.8-10.8) Red Blood Count 5.15 M/UL (4.70-6.10) Hemoglobin 13.9 G/DL (14.2-18.0) L Hematocrit 43.2 % (42.0-52.0) Mean Corpuscular Volume 84 FL (80-99) Mean Corpuscular Hemoglobin 27.0 PG (27.0-31.0) Mean Corpuscular Hemoglobin Concent 32.2 G/DL (32.0-36.0) Red Cell Distribution Width 15.8 % (11.6-14.8) H Platelet Count 160 K/UL (150-450) Mean Platelet Volume 9.1 FL (6.5-10.1) Neutrophils (%) (Auto) 38.4 % (45.0-75.0) L Lymphocytes (%) (Auto) 44.8 % (20.0-45.0) Monocytes (%) (Auto) 6.6 % (1.0-10.0) Eosinophils (%) (Auto) 9.1 % (0.0-3.0) H Basophils (%) (Auto) 1.1 % (0.0-2.0) Sodium Level 144 MMOL/L (136-145) Potassium Level 3.9 MMOL/L (3.5-5.1) Chloride Level 111 MMOL/L (98-107) H Carbon Dioxide Level 27 MMOL/L (21-32) Anion Gap 6 mmol/L (5-15) Blood Urea Nitrogen 13 mg/dL (7-18) Creatinine 0.8 MG/DL (0.55-1.30) Estimat Glomerular Filtration Rate > 60 mL/min (>60) Glucose Level 92 MG/DL (74-106) Calcium Level 8.1 MG/DL (8.5-10.1) L Pro-B-Type Natriuretic Peptide 412 pg/mL (0-125) H Triglycerides Level 29 MG/DL (30-150) L Cholesterol Level 92 MG/DL (< 200) LDL Cholesterol 42 mg/dL (<100) HDL Cholesterol 45 MG/DL (40-60) Cholesterol/HDL Ratio 2.0 (3.3-4.4) L Thyroid Stimulating Hormone (TSH) 1.571 uiU/mL (0.358-3.740) Objective HEENT: No JVD CARDIOVASCULAR: RRR, No murmur. LUNGS: Distant and clear. ABDOMEN: Bowel sounds distant. Nontender and nondistended. EXTREMITIES: No cyanosis, clubbing, or edema. NEUROLOGIC: The patient moves all extremities, slightly weak. Serg Akhtar MD Nov 24, 2020 09:48
--- NOTE | 2020-11-24 09:57 | NUR ---
*-*DISCHARGE PLANNING*-* PATIENT HAS BEEN REFERRED TO: [facility] P: [phone]
--- NOTE | 2020-11-24 10:35 | NUR ---
PT EVALUATION NOTE Patient seen for initial evaluation. Patient is independent with all functional mobility without assistive device. Skilled inpatient PT intervention not indicated, patient discharged from PT, Isabella salgado RN notified. Addendum: 11/24/20 at 1059 by LOCO [facility]CER PT Amended: Links added.
[2020-11-24 12:00] VITALS: BP 114/62
--- NOTE | 2020-11-24 12:30 | NUR ---
HEADLINE WRITER NOTE SW met w/ pt and obtained information. Pt reports he is currently living in a facility located on [facility]. Pt was unable to recall the exact address/name/contact information of the restaurant service manager. Pt has been living there for a year. UDS positive for Cocaine. PT denies hx of substance abuse/current substance abuse. Pt stated "I don't know where that came from." Pt declined counseling/tx intervention/resource on substance abuse. Pt plans to return to the facility upon DC. Pt is alert to place, aware of the current location and he verbalizes he knows how to get there via public transportation.
--- NOTE | 2020-11-24 13:48 | Consultation ---
Consult Note Consult Note NEUROLOGY CONSULTATION DATE OF CONSULTATION: 11/24/2020 ADIS DOMINGUEZ: Dr. Harding REASON FOR REFERRAL: Seizure Disorder BRIEF HISTORY: This is a 70-year-old AA male who presented to [facility] t night with experiencing a seizure, witnessed by his roommate that lasted about 30 seconds each. He states he has history of seizures and had them since 2004, His last seizure was 90 days ago, he takes Dilantin and does not follow a neuro logist outpatient, he states he has a provider by the name of Padmini at a clinic who prescribes his seizure medications. He admits to using cocaine and drinks beer. He was given keprra in ER and is currently on Keppra. PAST MEDICAL HISTORY: hypertension, drug abuse. PAST SURGICAL HISTORY: Unknown. MEDICATIONS: Reviewed ALLERGIES: Denies. SOCIAL HISTORY: Denies smoking tobacco, drinks beer daily, uses cocaine occasionally. ROS 14 point system review done PHYSICAL EXAM: Vital signs reviewed General: The patient is sleeping in bed woke upon calling his name he is alert and oriented x4 Neuro: Oriented to self and situation, has insight to situation, comprehends language is intact Cranial nerves II-XII are tested. PEERLA, No nystagmus. Tongue is midline Motor Exam: No involuntary movements, Bilat upper extremity strength is 4/5 and lower extremities 4/5 Sensation intact Gait not tested. LABORATORY: Reviewed IMAGING: Ct Head reviewed ASSESSMENT: 1. Seizure Disorder --> pt is started on keppra continue keppra dose will inform patient regarding keppra medication and dosage --> needs outpatient neurology for follow up have explained to him --> seizure precautions, rec cessation fo drugs 2. UTI --> abx 3. Cocaine abuse --> rec cessation 4. Hypertension. --> controlled Thank you for allowing us to participate in patients care, plan of care was discussed with my supervising physician Dr. Anthony Saldana,[facility] [employer] Nov 24, 2020 13:48
[2020-11-24 16:00] VITALS: BP 148/88
--- NOTE | 2020-11-24 16:18 | Cardiology Report ---
APPROVED REPORT EKG Measurement Heart [id number] <Conclusion> Sinus bradycardia Left axis deviation Low voltage QRS Inferior infarct, age undetermined Cannot rule out Anteroseptal infarct, age undetermined T wave abnormality, consider lateral ischemia Abnormal ECG
[2020-11-24] MEDS ORDERED: MIRTAZAPINE45 MG ORAL (17:02)
[2020-11-24] MEDS ORDERED: ACETAMINOPHEN-1 EAC1 ORAL (17:02)
[2020-11-24] MEDS ORDERED: FUROSEMIDE40 MG ORAL (17:02)
[2020-11-24] MEDS ORDERED: BRILINTA90 MG PO (17:02)
[2020-11-24] MEDS ORDERED: CARVEDILOL3.125 MG ORAL (17:02)
[2020-11-24] MEDS ORDERED: LISINOPRIL5 MG ORAL (17:02)
[2020-11-24] MEDS ORDERED: IBUPROFEN600 M1 ORAL (17:02)
[2020-11-24] MEDS ORDERED: FLOMAX0.4 MG ORAL (17:02)
[2020-11-24] MEDS ORDERED: DUTASTERIDE0.5 MG PO (17:02)
--- NOTE | 2020-11-24 19:02 | NUR ---
NURSE HAND-OFF REPORT: Important Events on Shift:N/A Patient Status: Full code Diet: Regular Pending Orders: N/A Pending Results/Labs:Morning labs Pending MD notification:N/A Latest Vital Signs: Temperature 97.9 , Pulse 54 , B/P 148 /88 , Respiratory Rate 20 , O2 SAT 100 , Room Air, O2 Flow Rate 3.0 . Vital Sign Comment: stable EKG Rhythm: Sinus Bradycardia Rhythm change?: N MD Notified?: Shannon Akhtar MD Response: Message left await call Latest Hernandez Fall Score: 35 Fall Risk: Medium Risk Safety Measures: Call light Within Reach, Bed Alarm Zone 1, Side Rails Side Rails x2, Bed position Low and Locked. Fall Precautions: Patient Fall Education Report given to Lul/HERMAN.
--- NOTE | 2020-11-24 19:31 | NUR ---
NURSE NOTES: Pt. received from HERMAN Jones. Pt. AAOx4, on room air, breathing even and unlabored, no indications of SOB, no respiratory distress, no complaints of pain. Pt. out of bed to chair. IV right FA 22g intact and patent with NS @ 80cc running. Bed low and locked, side rails x2 up and padded, and call light in reach.
[2020-11-24 20:00] VITALS: BP 122/79
[2020-11-25] VITALS: BP 116/73
--- NOTE | 2020-11-25 01:56 | Cardiology Report ---
APPROVED REPORT EKG Measurement Heart [id number] [place] [id number] <Conclusion> Normal sinus rhythm Left posterior fascicular block Anteroseptal infarct, age undetermined - possibly acute T wave abnormality, consider lateral ischemia Abnormal ECG
[2020-11-25 04:00] VITALS: BP 105/67
--- NOTE | 2020-11-25 06:27 | NUR ---
NURSE HAND-OFF REPORT: Important Events on Shift:[pt. stable, slept well overnight, voiding clear light yellow urine in urinal independently. no seizure activity] Patient Status: stable Diet: regular Pending Orders: na Pending Results/Labs:na Pending MD notification:need Dr. Harding to clear for d/c Latest Vital Signs: Temperature 96.6 , Pulse 52 , B/P 105 /67 , Respiratory Rate 18 , O2 SAT 96 , Room Air, O2 Flow Rate 3.0 . Vital Sign Comment: bradycardia overnight EKG Rhythm: Sinus Bradycardia Rhythm change?: N MD Notified?: MD Response: Latest Hernandez Fall Score: 35 Fall Risk: Medium Risk Safety Measures: Call light Within Reach, Bed Alarm Zone 1, Side Rails Side Rails x2, Bed position Low and Locked. Fall Precautions: Patient Fall Education Report given to []. Addendum: 11/25/20 at 0710 by Lul Quintanilla RN Hand off given to HERMAN Jones
[2020-11-25 06:56] LABS: BASOPHILS % (AUTO) 0.7 % (0.0-2.0); EOSINOPHILS % (AUTO) 9.2 % (0.0-3.0); HEMOGLOBIN 14.1 G/DL (14.2-18.0); LYMPHOCYTES % (AUTO) 40.2 % (20.0-45.0); MEAN CORPUSCULAR VOLUME 85 FL (80-99); MONOCYTES % (AUTO) 7.1 % (1.0-10.0); NEUTROPHILS % (AUTO) 42.8 % (45.0-75.0); PLATELET COUNT 154 K/UL (150-450); RED BLOOD COUNT 5.31 M/UL (4.70-6.10); RED CELL DISTRIBUTION WIDTH 14.3 % (11.6-14.8); WHITE BLOOD COUNT 5.5 K/UL (4.8-10.8)
--- NOTE | 2020-11-25 07:00 | NUR ---
NURSE NOTES: Received report from Lul/RN, Observed patient awake, eating breakfast in bed, on room air, no acute distress/SOB noted. Able to make needs known, Denies pain at this time. IV on right FA patent and intact, NS running at 80cc/hr. Bed in low position and locked, Call light within reach. Encouraged to use call light when needed. Will continue plan of care.
[2020-11-25 07:07] LABS: CREATINE KINASE 76 U/L (26-308)
--- NOTE | 2020-11-25 07:28 | NUR ---
CASE MANAGEMENT:REVIEW 11/25/20 SI: SEIZURE. COCAINE ABUSE 96.6 52 18 105/67 96% ON RA NO LABS IS: KEPPRA PO Q12 ASA PO QD LIPITOR PO QHS IVF@80/HR HEPARIN SQ BID : TELEMETRY STATUS DCP: FROM HOME PLAN: WANTS PATIENT REFERRED TO [facility]U PER PT NOTES PATIENT IS FULLY INDEPENDENT
[2020-11-25 08:00] VITALS: BP 107/66
[2020-11-25] MEDS: Aspirin Baby 81mg ORAL SCH (08:23)
[2020-11-25] MEDS: Heparin 5000 units/ml inj SUBQ SCH ×2 (08:24→17:25)
--- NOTE | 2020-11-25 09:08 | General Progress Note ---
Subjective Constitutional: Reports: weakness Allergies: Coded Allergies: No Known Allergies (Unverified , 11/22/20) All Systems: reviewed and negative except above Subjective sleepy calm Objective Last 24 Hour Vital Signs Date Time Temp Pulse Resp B/P (MAP) Pulse Ox O2 Delivery O2 Flow Rate FiO2 11/25/20 04:00 96.6 52 18 105/67 (80) 96 11/25/20 04:00 52 11/25/20 00:00 96.9 52 20 116/73 (87) 99 11/25/20 00:00 52 11/24/20 21:00 Room Air 11/24/20 20:00 98.4 57 17 122/79 (93) 96 11/24/20 20:00 57 11/24/20 16:00 54 11/24/20 16:00 97.9 55 20 148/88 (108) 100 11/24/20 12:00 97.6 62 18 114/62 (79) 99 11/24/20 12:00 53 Intake and Output 11/24/20 11/25/20 19:00 07:00 Intake Total 1680 ml Output Total 1500 ml Balance 180 ml Intake Oral 800 ml IV Total 880 ml Output Urine Total 1500 ml Laboratory Tests 11/25/20 05:46: White Blood Count 5.5, Red Blood Count 5.31, Hemoglobin 14.1L, Hematocrit 45.0, Mean Corpuscular Volume 85, Mean Corpuscular Hemoglobin 26.5L, Mean Corpuscular Hemoglobin Concent 31.2L, Red Cell Distribution Width 14.3, Platelet Count 154, Mean Platelet Volume 10.0, Neutrophils (%) (Auto) 42.8L, Lymphocytes (%) (Auto) 40.2, Monocytes (%) (Auto) 7.1, Eosinophils (%) (Auto) 9.2H, Basophils (%) (Auto) 0.7, Total Creatine Kinase 76 Height (Feet): 5 Height (Inches): 8.00 Weight (Pounds): 175 General Appearance: lethargic EENT: normal ENT inspection Neck: normal alignment Cardiovascular: normal peripheral pulses, normal rate, regular rhythm Respiratory/Chest: chest wall non-tender, lungs clear, normal breath sounds Abdomen: normal bowel sounds, non tender, soft Extremities: normal inspection Edema: no edema noted Arm (L), no edema noted Arm (R), no edema noted Leg (L), no edema noted Leg (R), no edema noted Pedal (L), no edema noted Pedal (R), no edema noted Generalized Neurologic: motor weakness Skin: normal pigmentation, warm/dry Assessment/Plan Problem List: (1) HTN (hypertension) ICD Codes: I10 - Essential (primary) hypertension SNOMED: 30220641 (2) Weakness ICD Codes: R53.1 - Weakness SNOMED: 75043421 (3) Cocaine abuse ICD Codes: F14.10 - Cocaine abuse, uncomplicated SNOMED: 77437082 (4) Abnormal EKG ICD Codes: R94.31 - Abnormal electrocardiogram [ECG] [EKG] SNOMED: 773933180 (5) Observed seizure-like activity ICD Codes: R56.9 - Unspecified convulsions SNOMED: 534018667 Status: stable, progressing Assessment/Plan: pt diet detox seizure control cbc bmp am aru Jhon Kennedy DO Nov 25, 2020 09:08
--- NOTE | 2020-11-25 09:21 | Cardiology Report ---
APPROVED REPORT EXAM: Two-dimensional and M-mode echocardiogram with Doppler and color Doppler. INDICATION Cardiac Disease: CAD M-Mode DIMENSIONS IVSd0.6 (0.7-1.1cm)Left Atrium (MM)3.6 (1.6-4.0cm) LVDd5.9 (3.5-5.6cm)Aortic Root3.6 (2.0-3.7cm) PWd1.4 (0.7-1.1cm)Aortic Cusp Exc.1.7 (1.5-2.0cm) IVSs0.9 cmEPSS0.7 (>1.0cm) LVDs4.2 (2.5-4.0cm) PWs2.0 cm <Conclusion> Mild left ventricular enlargement. There is akinesis of anterior wall, apical cap, distal segments and apex. Left ventricular ejection fraction estimated to be 35 %. Mild left ventricular hypertrophy by 2-D. No evidence of pericardial effusion. All other cardiac chamber sizes are within normal limits. Focal aortic valve sclerosis with adequate cusp excursion. Thickened mitral valve leaflets with normal excursion. Mitral annulus and aortic root calcification. Pulmonic valve not well visualized. Normal tricuspid valve structure. IVC at normal size and collapsing with respiration. A color flow and spectral Doppler study was performed and revealed: Trace to mild aortic regurgitation. Mild mitral regurgitation. Mitral diastolic velocities suggest reduced left ventricular relaxation c/w mild diastolic dysfunction (Grade I). Trace tricuspid regurgitation. Tricuspid systolic velocities suggests peak right ventricular systolic pressure of 25 mmHg.
[2020-11-25 12:00] VITALS: BP 114/78
--- NOTE | 2020-11-25 14:58 | Cardiac Electrophysiology PN ---
Assessment/Plan Assessment/Plan 1. Hypotension better after 500 cc NS. On NS 80 cc/hr. EF 35%. DC iv fluid 2. 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 Denies prior KS or Stent. Echo EF 35% Keep off beta vanessa for Cocaine use and bradycardia. On Aspirin and Lipitor Will need cardiac cath for further eval 3. Bradycardia with HR 52 off any LLANOS or AVN vanessa 4. 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 Likely needs cardiac cath Add lisinopril 2.5 daily 5. Cocaine user 6. Seizures Subjective Subjective No CP or SOB. BP improved with iv fluids. Seizure precaution in place. Echo EF 40% Objective Last 24 Hour Vital Signs Date Time Temp Pulse Resp B/P (MAP) Pulse Ox O2 Delivery O2 Flow Rate FiO2 11/25/20 12:00 54 11/25/20 12:00 98.1 54 18 114/78 (90) 96 11/25/20 09:00 Room Air 11/25/20 08:00 53 11/25/20 08:00 98.1 62 18 107/66 (80) 95 11/25/20 04:00 96.6 52 18 105/67 (80) 96 11/25/20 04:00 52 11/25/20 00:00 96.9 52 20 116/73 (87) 99 11/25/20 00:00 52 11/24/20 21:00 Room Air 11/24/20 20:00 98.4 57 17 122/79 (93) 96 11/24/20 20:00 57 11/24/20 16:00 54 11/24/20 16:00 97.9 55 20 148/88 (108) 100 Intake and Output 11/24/20 11/25/20 19:00 07:00 Intake Total 1680 ml Output Total 1500 ml Balance 180 ml Intake Oral 800 ml IV Total 880 ml Output Urine Total 1500 ml Laboratory Tests Test 11/25/20 05:46 White Blood Count 5.5 K/UL (4.8-10.8) Red Blood Count 5.31 M/UL (4.70-6.10) Hemoglobin 14.1 G/DL (14.2-18.0) L Hematocrit 45.0 % (42.0-52.0) Mean Corpuscular Volume 85 FL (80-99) Mean Corpuscular Hemoglobin 26.5 PG (27.0-31.0) L Mean Corpuscular Hemoglobin Concent 31.2 G/DL (32.0-36.0) L Red Cell Distribution Width 14.3 % (11.6-14.8) Platelet Count 154 K/UL (150-450) Mean Platelet Volume 10.0 FL (6.5-10.1) Neutrophils (%) (Auto) 42.8 % (45.0-75.0) L Lymphocytes (%) (Auto) 40.2 % (20.0-45.0) Monocytes (%) (Auto) 7.1 % (1.0-10.0) Eosinophils (%) (Auto) 9.2 % (0.0-3.0) H Basophils (%) (Auto) 0.7 % (0.0-2.0) Total Creatine Kinase 76 U/L (26-308) Objective HEENT: No JVD CARDIOVASCULAR: RRR, No murmur. LUNGS: Distant and clear. ABDOMEN: Bowel sounds distant. Nontender and nondistended. EXTREMITIES: No cyanosis, clubbing, or edema. NEUROLOGIC: The patient moves all extremities, slightly weak. Serg Akhtar MD Nov 25, 2020 14:58
--- NOTE | 2020-11-25 15:01 | NUR ---
*-*DISCHARGE PLANNING*-* PATIENT HAS BEEN REFERRED TO: [facility]/ [facility] P: [phone] S/W GERRY, CANNOT ACCEPTED PATIENT, DOES NOT MEET ARU CRITERIA.
[2020-11-25 16:00] VITALS: BP 113/75
--- NOTE | 2020-11-25 19:15 | NUR ---
NURSE HAND-OFF REPORT: Important Events on Shift:N/A Patient Status: Full code Diet: Regular Pending Orders: Rehab placement Pending Results/Labs:Morning labs Pending MD notification:N/A Latest Vital Signs: Temperature 98.6 , Pulse 55 , B/P 113 /75 , Respiratory Rate 19 , O2 SAT 97 , Room Air, O2 Flow Rate 3.0 . Vital Sign Comment: stable EKG Rhythm: Sinus Bradycardia Rhythm change?: N MD Notified?: Shannon Akhtar MD Response: Message left await call Latest Hernandez Fall Score: 35 Fall Risk: Medium Risk Safety Measures: Call light Within Reach, Bed Alarm Zone 1, Side Rails Side Rails x2, Bed position Low and Locked. Fall Precautions: Patient Fall Education Report given to Sabine/RN.
--- NOTE | 2020-11-25 19:16 | NUR ---
NURSE NOTES: Received report from HERMAN Jones. Pt is A/O x4 and verbally responsive. No SOB or acute distress noted. Pt has a IV site on IV RFA 22G which is intact and patent with NS @ 80cc/hr. Pt's bed is low and locked, side rails x2 up and padded for seizures. Call light placed within reach. Will continue place of care.
[2020-11-25 20:00] VITALS: BP 111/69
[2020-11-26] VITALS: BP 124/80
[2020-11-26 04:00] VITALS: BP 117/78
--- NOTE | 2020-11-26 07:33 | NUR ---
NURSE HAND-OFF REPORT: Important Events on Shift: Nothing Patient Status: Stable Diet: Regular Pending Orders: Pending Results/Labs: Pending MD notification: Latest Vital Signs: Temperature 98.6 , Pulse 54 , B/P 117 /78 , Respiratory Rate 18 , O2 SAT 94 , Room Air, O2 Flow Rate 3.0 . Vital Sign Comment: EKG Rhythm: Sinus Bradycardia Rhythm change?: N MD Notified?: Shannon Akhtar MD Response: Message left await call Latest Hernandez Fall Score: 35 Fall Risk: Medium Risk Safety Measures: Call light Within Reach, Bed Alarm Zone 1, Side Rails Side Rails x2, Bed position Low and Locked. Fall Precautions: Patient Fall Education Report given to Lorie.
[2020-11-26 08:00] VITALS: BP 97/64
--- NOTE | 2020-11-26 08:01 | Infectious Diseases Prog Note ---
Subjective Allergies: Coded Allergies: No Known Allergies (Unverified , 11/22/20) Duplicate note, ignore Objective Last 24 Hour Vital Signs Date Time Temp Pulse Resp B/P (MAP) Pulse Ox O2 Delivery O2 Flow Rate FiO2 11/26/20 04:00 98.6 54 18 117/78 (91) 94 11/26/20 04:00 54 11/26/20 00:00 97.7 55 18 124/80 (95) 95 11/26/20 00:00 58 11/25/20 21:00 Room Air 11/25/20 20:00 75 11/25/20 20:00 98.8 60 18 111/69 (83) 94 11/25/20 16:00 55 11/25/20 16:00 98.6 59 19 113/75 (88) 97 11/25/20 12:00 54 11/25/20 12:00 98.1 54 18 114/78 (90) 96 11/25/20 09:00 Room Air Height (Feet): 5 Height (Inches): 8.00 Weight (Pounds): 175 Current Medications Medications (Trade) Dose Ordered Sig/Pooja Route PRN Reason Start Time Stop Time Status Last Admin Dose Admin Aspirin (ASA) 81 mg DAILY ORAL 11/24/20 09:00 01/08/21 08:59 11/25/20 08:23 Atorvastatin Calcium (Lipitor) 10 mg BEDTIME ORAL 11/23/20 21:00 02/21/21 20:59 11/25/20 21:10 Heparin Sodium (Porcine) (Heparin 5000 units/ml) 5,000 units BID SUBQ 11/23/20 09:00 01/07/21 08:59 11/25/20 17:25 Levetiracetam (Keppra) 500 mg Q12HR ORAL 11/24/20 09:00 01/07/21 20:59 11/25/20 21:10 Lisinopril (ZestriL) 2.5 mg DAILY ORAL 11/26/20 09:00 12/26/20 08:59 Morphine Sulfate (Morphine Sulfate) 2 mg Q4H PRN IVP Severe Pain (Pain Scale 7-10) 11/23/20 03:00 11/30/20 02:59 Tanisha Acosta M.D. Nov 26, 2020 08:01
--- NOTE | 2020-11-26 08:27 | NUR ---
NURSE NOTES: Received patient report from HERMAN Regalado. Patient is AO x4 awake and able to make needs known. Patient shows no signs of distress or pain at the time. Patient is on room air and shows no signs of respiratory distress at the time. IV is intact and patent. There are no signs of erythema, infiltration, or bleeding. Bed is in the lowest position, call light is within reach, side rails up x2.
[2020-11-26] MEDS ORDERED: Lisinopril 2.5mg tab ORAL SCH (09:00)
[2020-11-26 09:31] LABS: BASOPHILS % (AUTO) 0.9 % (0.0-2.0); EOSINOPHILS % (AUTO) 13.7 % (0.0-3.0); HEMATOCRIT 47.7 % (42.0-52.0); HEMOGLOBIN 14.8 G/DL (14.2-18.0); LYMPHOCYTES % (AUTO) 38.4 % (20.0-45.0); MEAN CORPUSCULAR VOLUME 84 FL (80-99); MONOCYTES % (AUTO) 6.8 % (1.0-10.0); NEUTROPHILS % (AUTO) 40.1 % (45.0-75.0); PLATELET COUNT 170 K/UL (150-450); RED BLOOD COUNT 5.66 M/UL (4.70-6.10); RED CELL DISTRIBUTION WIDTH 14.5 % (11.6-14.8); WHITE BLOOD COUNT 4.6 K/UL (4.8-10.8)
[2020-11-26] MEDS: Aspirin Baby 81mg ORAL SCH (09:48)
[2020-11-26] MEDS: Heparin 5000 units/ml inj SUBQ SCH (09:49)
[2020-11-26 10:13] LABS: ANION GAP 5 mmol/L (5-15); BLOOD UREA NITROGEN 13 mg/dL (7-18); CALCIUM 8.9 MG/DL (8.5-10.1); CARBON DIOXIDE 29 MMOL/L (21-32); CHLORIDE 110 MMOL/L (98-107); CREATININE 0.9 MG/DL (0.55-1.30); SODIUM 144 MMOL/L (136-145)
--- NOTE | 2020-11-26 11:09 | Infectious Diseases Prog Note ---
Assessment/Plan 70yo M with: Afebrile Seizure at home Normal WBC Satting well on RA Utox +Cocaine / UA 5-10 WBC CTH: No acute process CXR: No acute process HIV screen p Plan: Cont to monitor off abx, no current s/sx of infection F/u HIV screen Monitor CBC/CMP Monitor resp status Monitor temp curve, hemodynamics D/w RN Thank you for this consult. [facility] will continue to follow. Subjective Allergies: Coded Allergies: No Known Allergies (Unverified , 11/22/20) AF NAD on RA No complaints WBC 4.6 Objective Last 24 Hour Vital Signs Date Time Temp Pulse Resp B/P (MAP) Pulse Ox O2 Delivery O2 Flow Rate FiO2 11/26/20 09:00 97/64 11/26/20 04:00 98.6 54 18 117/78 (91) 94 11/26/20 04:00 54 11/26/20 00:00 97.7 55 18 124/80 (95) 95 11/26/20 00:00 58 11/25/20 21:00 Room Air 11/25/20 20:00 75 11/25/20 20:00 98.8 60 18 111/69 (83) 94 11/25/20 16:00 55 11/25/20 16:00 98.6 59 19 113/75 (88) 97 11/25/20 12:00 54 11/25/20 12:00 98.1 54 18 114/78 (90) 96 Height (Feet): 5 Height (Inches): 8.00 Weight (Pounds): 175 Gen: NAD in bed HEENT: NCAT, EOMI, PERRL Pulm: BL chest rise on RA, non-labored Abd: Soft, NTND Ext: No c/c/e Neuro: Awake, alert, interactive Laboratory Tests Test 11/26/20 09:00 White Blood Count 4.6 K/UL (4.8-10.8) L Red Blood Count 5.66 M/UL (4.70-6.10) Hemoglobin 14.8 G/DL (14.2-18.0) Hematocrit 47.7 % (42.0-52.0) Mean Corpuscular Volume 84 FL (80-99) Mean Corpuscular Hemoglobin 26.2 PG (27.0-31.0) L Mean Corpuscular Hemoglobin Concent 31.0 G/DL (32.0-36.0) L Red Cell Distribution Width 14.5 % (11.6-14.8) Platelet Count 170 K/UL (150-450) Mean Platelet Volume 10.0 FL (6.5-10.1) Neutrophils (%) (Auto) 40.1 % (45.0-75.0) L Lymphocytes (%) (Auto) 38.4 % (20.0-45.0) Monocytes (%) (Auto) 6.8 % (1.0-10.0) Eosinophils (%) (Auto) 13.7 % (0.0-3.0) H Basophils (%) (Auto) 0.9 % (0.0-2.0) Sodium Level 144 MMOL/L (136-145) Potassium Level 4.0 MMOL/L (3.5-5.1) Chloride Level 110 MMOL/L (98-107) H Carbon Dioxide Level 29 MMOL/L (21-32) Anion Gap 5 mmol/L (5-15) Blood Urea Nitrogen 13 mg/dL (7-18) Creatinine 0.9 MG/DL (0.55-1.30) Estimat Glomerular Filtration Rate > 60 mL/min (>60) Glucose Level 90 MG/DL (74-106) Calcium Level 8.9 MG/DL (8.5-10.1) Current Medications Medications (Trade) Dose Ordered Sig/Pooja Route PRN Reason Start Time Stop Time Status Last Admin Dose Admin Aspirin (ASA) 81 mg DAILY ORAL 11/24/20 09:00 01/08/21 08:59 11/26/20 09:48 Atorvastatin Calcium (Lipitor) 10 mg BEDTIME ORAL 11/23/20 21:00 02/21/21 20:59 11/25/20 21:10 Heparin Sodium (Porcine) (Heparin 5000 units/ml) 5,000 units BID SUBQ 11/23/20 09:00 01/07/21 08:59 11/26/20 09:49 Levetiracetam (Keppra) 500 mg Q12HR ORAL 11/24/20 09:00 01/07/21 20:59 11/26/20 09:48 Lisinopril (ZestriL) 2.5 mg DAILY ORAL 11/26/20 09:00 12/26/20 08:59 Morphine Sulfate (Morphine Sulfate) 2 mg Q4H PRN IVP Severe Pain (Pain Scale 7-10) 11/23/20 03:00 11/30/20 02:59 Tanisha Acosta M.D. Nov 26, 2020 11:09
[2020-11-26 12:00] VITALS: BP 99/54
--- NOTE | 2020-11-26 12:58 | General Progress Note ---
Subjective Constitutional: Reports: weakness Allergies: Coded Allergies: No Known Allergies (Unverified , 11/22/20) All Systems: reviewed and negative except above Subjective sleepy calm Objective Last 24 Hour Vital Signs Date Time Temp Pulse Resp B/P (MAP) Pulse Ox O2 Delivery O2 Flow Rate FiO2 11/26/20 12:00 97.5 67 18 99/54 (69) 95 11/26/20 09:00 97/64 11/26/20 09:00 Room Air 11/26/20 08:00 59 11/26/20 08:00 97.5 58 18 97/64 (75) 94 11/26/20 04:00 98.6 54 18 117/78 (91) 94 11/26/20 04:00 54 11/26/20 00:00 97.7 55 18 124/80 (95) 95 11/26/20 00:00 58 11/25/20 21:00 Room Air 11/25/20 20:00 75 11/25/20 20:00 98.8 60 18 111/69 (83) 94 11/25/20 16:00 55 11/25/20 16:00 98.6 59 19 113/75 (88) 97 Intake and Output 11/25/20 11/26/20 19:00 07:00 Intake Total 1000 ml Output Total 1600 ml Balance -600 ml Intake Oral 1000 ml Output Urine Total 1600 ml Laboratory Tests 11/26/20 09:00: White Blood Count 4.6L, Red Blood Count 5.66, Hemoglobin 14.8, Hematocrit 47.7, Mean Corpuscular Volume 84, Mean Corpuscular Hemoglobin 26.2L, Mean Corpuscular Hemoglobin Concent 31.0L, Red Cell Distribution Width 14.5, Platelet Count 170, Mean Platelet Volume 10.0, Neutrophils (%) (Auto) 40.1L, Lymphocytes (%) (Auto) 38.4, Monocytes (%) (Auto) 6.8, Eosinophils (%) (Auto) 13.7H, Basophils (%) (Auto) 0.9, Sodium Level 144, Potassium Level 4.0, Chloride Level 110H, Carbon Dioxide Level 29, Anion Gap 5, Blood Urea Nitrogen 13, Creatinine 0.9, Estimat Glomerular Filtration Rate > 60, Glucose Level 90, Calcium Level 8.9 Height (Feet): 5 Height (Inches): 8.00 Weight (Pounds): 175 General Appearance: alert EENT: normal ENT inspection Neck: normal alignment Cardiovascular: normal peripheral pulses, normal rate, regular rhythm Respiratory/Chest: chest wall non-tender, lungs clear, normal breath sounds Abdomen: normal bowel sounds, non tender, soft Extremities: normal inspection Edema: no edema noted Arm (L), no edema noted Arm (R), no edema noted Leg (L), no edema noted Leg (R), no edema noted Pedal (L), no edema noted Pedal (R), no edema noted Generalized Neurologic: motor weakness Skin: normal pigmentation, warm/dry Assessment/Plan Problem List: (1) HTN (hypertension) ICD Codes: I10 - Essential (primary) hypertension SNOMED: 25960360 (2) Weakness ICD Codes: R53.1 - Weakness SNOMED: 00912035 (3) Cocaine abuse ICD Codes: F14.10 - Cocaine abuse, uncomplicated SNOMED: 70023565 (4) Abnormal EKG ICD Codes: R94.31 - Abnormal electrocardiogram [ECG] [EKG] SNOMED: 134954619 (5) Observed seizure-like activity ICD Codes: R56.9 - Unspecified convulsions SNOMED: 016278177 Status: stable, progressing Assessment/Plan: pt diet detox seizure control dc home w hh if clear Jhon Harding DO Nov 26, 2020 12:58
[2020-11-26] MEDS ORDERED: ASPIRIN81 M3 PO (14:25)
[2020-11-26] MEDS ORDERED: ATORVASTATIN CA20 MG ORAL (14:26)
--- NOTE | 2020-11-26 14:28 | Cardiac Electrophysiology PN ---
Assessment/Plan Assessment/Plan 1. Hypotension better after 500 cc NS. EF 35%. 2. Old inferior wall ND and lateral ischemia on ECG. Denies prior ND or Stent. Echo EF 35% Keep off beta vanessa for Cocaine use and bradycardia. On Aspirin and Lipitor Will need cardiac cath for further eval but he is refusing. 3. Bradycardia with HR 52 off any LLANOS or AVN vanessa 4. 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 On lisinopril 2.5 daily. Refusing further cardiac work up. 5. Cocaine user 6. Seizures Subjective Subjective No CP or SOB. BP improved with iv fluids. Seizure precaution in place. Echo EF 35% Wants to go home Objective Last 24 Hour Vital Signs Date Time Temp Pulse Resp B/P (MAP) Pulse Ox O2 Delivery O2 Flow Rate FiO2 11/26/20 12:00 97.5 67 18 99/54 (69) 95 11/26/20 12:00 62 11/26/20 09:00 97/64 11/26/20 09:00 Room Air 11/26/20 08:00 59 11/26/20 08:00 97.5 58 18 97/64 (75) 94 11/26/20 04:00 98.6 54 18 117/78 (91) 94 11/26/20 04:00 54 11/26/20 00:00 97.7 55 18 124/80 (95) 95 11/26/20 00:00 58 11/25/20 21:00 Room Air 11/25/20 20:00 75 11/25/20 20:00 98.8 60 18 111/69 (83) 94 11/25/20 16:00 55 11/25/20 16:00 98.6 59 19 113/75 (88) 97 Intake and Output 11/25/20 11/26/20 19:00 07:00 Intake Total 1000 ml Output Total 1600 ml Balance -600 ml Intake Oral 1000 ml Output Urine Total 1600 ml Laboratory Tests Test 11/26/20 09:00 White Blood Count 4.6 K/UL (4.8-10.8) L Red Blood Count 5.66 M/UL (4.70-6.10) Hemoglobin 14.8 G/DL (14.2-18.0) Hematocrit 47.7 % (42.0-52.0) Mean Corpuscular Volume 84 FL (80-99) Mean Corpuscular Hemoglobin 26.2 PG (27.0-31.0) L Mean Corpuscular Hemoglobin Concent 31.0 G/DL (32.0-36.0) L Red Cell Distribution Width 14.5 % (11.6-14.8) Platelet Count 170 K/UL (150-450) Mean Platelet Volume 10.0 FL (6.5-10.1) Neutrophils (%) (Auto) 40.1 % (45.0-75.0) L Lymphocytes (%) (Auto) 38.4 % (20.0-45.0) Monocytes (%) (Auto) 6.8 % (1.0-10.0) Eosinophils (%) (Auto) 13.7 % (0.0-3.0) H Basophils (%) (Auto) 0.9 % (0.0-2.0) Sodium Level 144 MMOL/L (136-145) Potassium Level 4.0 MMOL/L (3.5-5.1) Chloride Level 110 MMOL/L (98-107) H Carbon Dioxide Level 29 MMOL/L (21-32) Anion Gap 5 mmol/L (5-15) Blood Urea Nitrogen 13 mg/dL (7-18) Creatinine 0.9 MG/DL (0.55-1.30) Estimat Glomerular Filtration Rate > 60 mL/min (>60) Glucose Level 90 MG/DL (74-106) Calcium Level 8.9 MG/DL (8.5-10.1) Objective HEENT: No JVD CARDIOVASCULAR: RRR, No murmur. LUNGS: Distant and clear. ABDOMEN: Bowel sounds distant. Nontender and nondistended. EXTREMITIES: No cyanosis, clubbing, or edema. NEUROLOGIC: The patient moves all extremities, slightly weak. Serg Akhtar MD Nov 26, 2020 14:28
--- NOTE | 2020-11-26 15:40 | NUR ---
NURSE NOTES: Patient is ready for discharge as ordered by Dr. Harding. Shoes were obtained for patient and Tap card as well so he can get home. There is no phone number on file for patient and he does not remember his number either. Says he has no way of obtaining it. Called salt manager Luly to inform and she advice to hold patient until we are able to contact Home Health and they are able to speak to the patient.
[2020-11-26 16:00] VITALS: BP 97/63
--- NOTE | 2020-11-26 16:48 | NUR ---
NURSE NOTES: Spoke to Shruthi Case Management. She said patient can go home even though there is no phone number on file. Patient told her he would call her once he was home. Ok to discharge per Shruthi.
[2020-11-26] MEDS ORDERED: D5 1/2NS 1000ml IV ONE (17:29)
--- NOTE | 2020-11-26 17:30 | NUR ---
NURSE NOTES: Patient has been discharged home with home health. IV has been taken out and tele monitor taken off. Belongings list has been reviewed with patient and signed. Patient shows no signs of distress or pain at the time.
--- NOTE | 2020-11-28 14:11 | Discharge Summary ---
Discharge Summary Discharge Summary _ Date of admission: 11/22/2020 Date of discharge: 11/26/[address] Harding History of Present Illness and Brief Hospital Course Mr. Childers is a 62-year-old male with past medical history of hypertension who presented to the ED for evaluation of seizure-like activity. According to EMS, the patient's roommate witnessed 2 brief episodes of generalized tonic-clonic shaking that resolved spontaneously within 30 seconds. No head injury was reported. The patient arrived to the ED awake and alert and denied having a seizure history. He did not remember how he came to the emergency department. Patient was having retrograde amnesia. Patient denied any pain, discomfort, headache, visual changes, numbness, tingling, pain in extremities or chest, shortness of breath, nausea, or vomiting. Patient denies taking any medication for seizures. Patient was found to be hypoglycemic and was given orange juice. His EKG revealed precordial Q waves and diffuse inverted T waves in the anterolateral leads without obvious ST segment elevation. CT of head showed chronic changes without acute bleed or mass effect. Labs were positive for cocaine on toxicology screen. Initial troponin was within normal limits. He was admitted to the hospital given his abnormal EKG and seizure-like activity. 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 Patient denied prior history of FL or stent. His echocardiogram revealed ejection fraction of 35%. Patient was kept off beta-vanessa given cocaine use and bradycardia. Patient was started on aspirin and Lipitor. Patient required cardiac cath for further evaluation but he refused. Given his witnessed seizure activity, patient was started on Keppra. Patient would need outpatient neurology follow-up. He was educated on cessation from drugs. Patient's urinalysis showed signs of UTI but was kept off of antibiotics given absence of signs and symptoms of infection. Patient was medically stable for discharge and was discharged home with home health on 11/26/2020 in stable condition. Patient is to continue taking Keppra and follow-up with a neurologist as an outpatient. Consultants: Cardiology Dr. Akhtar Infectious disease Dr. 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 I was not involved in the patient's management Samm Alfaro Nov 28, 2020 14:11
== END 2020-11-26 17:30 | disposition home health service (06) | DRG 101 ==
LOC: EDBD 17:14 → EMR 17:45 → EDBD 18:51 → 2E 18:51 → EDBEDREQ 21:51
DX: G40.909 Epilepsy, unspecified, not intractable, without status epilepticus (principal); N39.0 Urinary tract infection, site not specified; I42.9 Cardiomyopathy, unspecified; F14.10 Cocaine abuse, uncomplicated; I95.9 Hypotension, unspecified; I10 Essential (primary) hypertension; I25.2 Old myocardial infarction; R00.1 Bradycardia, unspecified
CPT/HCPCS: 36415; 70450; 71045; 80048; 80053; 80061; 80307; 81003; 82550; 83880; 84443; 84484; 85025; 86703; 93005; 93306; 96374; 99285; G0480; J7030